=== PATIENT | male | born 1940 | race Caucasian/White ===

== ENCOUNTER → 2017-01-17 | Outpatient (CLI) | payer OTHER, BC ==
[~2017-01-17] VITALS: Ht 180.3 cm; Wt 110.2 kg
[~2017-01-17] MED LIST: ACTOS 30 MG TAB30 M1 PO; AMLODIPINE BESY10 MG PO; APAP500 PO; ASPIR 8181 M1 PO; ASPIRIN81 M2 PO; BACTROBAN22 GM; COLACE100 MG PO; COUMADIN 2 MG TA2 M1 PO; COUMADIN 3 MG TA3 M1 PO; COZAAR 50 MG TA50 M2 PO; DIABETA 5MG TABL5 MG PO; HYDROCODONE-APA1 TA1 PO; LASIX 40 MG TAB40 M2 PO; LIPITOR 20 MG T20 M1 PO; LOPRESSOR100 MG PO; LUNESTA3 MG PO; MAG-AL PLUS SUS30 ML PO; METFORMIN HCL500 MG PO; METOPROLOL SUC100 MG PO; MULTI VITAMIN1 EACH PO; NORCO 5-325 TA1 EACH PO; PIOGLITAZONE30 MG PO; TOPROL XL100 MG PO; TRAMADOL 50 MG50 MG PO; TYLENOL325 MG PO; VITAMIN C500 M1 PO; VITAMIN D1000 UNI1 PO; VOLTAREN GEL 1100 G2; ZOLPIDEM TARTRA10 MG PO; [UNRECOGNIZED DRUG - OTHER] PO
--- NOTE | ~2017-01-17 | HPC ---
[facility] [address] [place] [address] PAIN MANAGEMENT CONSULTATION Name: KOURTNEY HARVEY Room #: [facility].#: [id number] Admission: 01/17/17 Attend Phys: Tee Gonsales DO Discharge: Date of : 42 Report #: [id number] THIS REPORT FOR: //name// CC: Eugene Gonsales DATE OF SERVICE: 01/17/2017 CHIEF COMPLAINT: Low back pain, bilateral lower extremity pain with weakness and paresthesias. HISTORY OF PRESENT ILLNESS: As you know, the patient is a very pleasant 76-year-old male who has had a longstanding history of low back pain, lower extremity pain with weakness and paresthesias. The patient indicates pain began in 2014. He denies injury or trauma. He states pain has progressively worsened. He has recently underwent MRI of the lumbar spine. Given the findings on this imaging study, he was then referred to our clinic for evaluation for lumbar spinal stenosis. He indicates today pain is periodic, describes pain as burning, aching, gnawing, numbness and tingling. Places pain score at 6/10, daily average of 6/10, worst pain has been is 6/10. The patient states that sitting, walking any length of time exacerbates symptoms; sitting and repositioning tends to improve pain periodically. He states he is having difficulty with lifting his legs and has noted weakness, stumbling and near falls that have begun to become more prevalent. He has been referred to our clinic for evaluation. PAST MEDICAL HISTORY: 1. Long-term anticoagulation use. 2. Ataxic gait. 3. Atrial fibrillation. 4. Coronary artery disease. 5. Diabetes mellitus type 2. 6. Chronic lumbar pain secondary to spinal stenosis. 7. Osteoarthritis. 8. Hyperlipidemia. 9. Hypertension. 10. Chronic insomnia. 11. Morbid obesity. 12. Peripheral neuropathy. 13. Restrictive lung disease. 14. Venous insufficiency. PAST SURGICAL HISTORY: Bilateral total knee arthroplasties, cataract surgery, bilateral. [address] [address] PAIN MANAGEMENT CONSULTATION Name: KOURTNEY HARVEY Room #: [facility].#: [id number] Admission: 01/17/17 Attend Phys: Tee Gonsales DO Discharge: Date of : 42 Report #: [id number] SOCIAL HISTORY: The patient denies tobacco, IV or illicit drug use. Admits to approximately 2 alcoholic beverages per week. He is retired, retired 22 years ago. He is accompanied by his who is present in room today. REVIEW OF SYSTEMS: Positive for wearing corrective eyewear, glaucoma, hearing loss with tinnitus, atrial fibrillation requiring anticoagulation, shortness of breath, nocturia, numbness and tingling sensations, balance issues, ataxic gait, diabetes mellitus type 2, hypertension, dyslipidemia. All other review of systems negative per 12-point review of systems other than those listed in history of present illness. Pain impact score 30/70 indicating moderate interference of daily activities secondary to pain. ALLERGIES: PENICILLINS. CURRENT MEDICATIONS: Vitamin C 500 mg once a day, cholecalciferol 1000 units per day, acetaminophen 500 mg 3 times a day, zolpidem 10 mg p.o. at bedtime, Lunesta 3 mg p.o. at bedtime, metoprolol 100 mg once a day, warfarin 3 mg every other day, aspirin 81 mg per day, metformin 1000 mg twice a day, tramadol 50 mg 4 times a day, multivitamin 1 tab per day, furosemide 40 mg per day, Actos 30 mg per day, amlodipine 10 mg per day, Lipitor 20 mg per day, Cozaar 50 mg twice a day, Diabeta 5 mg twice a day. IMAGING: MRI lumbar spine obtained on 11/15/2016 shows L1-L2 unremarkable. L2-L3 disk bulge, facet ligamentum flavum hypertrophy, epidural fat prominence, AP diameter measuring 5 mm, lateral recess narrowing bilaterally. L3-L4, marked facet and ligamentum flavum hypertrophy, severe central canal stenosis with thecal sac measuring 3 mm, negligible CSF surrounding nerve roots. Moderate bilateral neural foraminal narrowing. L4-L5, superimposed disk herniation and disk bulge, marked facet hypertrophy, ligamentum flavum hypertrophy, severe compression of the cord. No CSF surrounding nerve roots at this level, severe lateral recess narrowing, [id number] bilateral neural foraminal narrowing. L5-S1, disk bulge, broad-based central disk protrusions and facet hypertrophy, thecal sac measuring 9 mm. Foraminal narrowing. PHYSICAL EXAMINATION: VITAL SIGNS: Blood pressure 156/102, pulse 70, respiratory rate 22, unlabored. The patient is 98% on room air, height 5 feet 11 inches tall, weight 243 pounds, BMI calculated 33.9. GENERAL: Well-developed, well-nourished, well-hydrated, exogenously obese 76-year-old male appearing his stated age. He is placing current pain score around 6/10. HEENT: Normocephalic, atraumatic. Pupils equal, round, reactive to light. Extraocular muscles are intact. Sclerae nonicteric without injection. NEUROLOGIC: Cranial nerves 2-12 grossly intact. Speech fluent. The patient [address] [address] PAIN MANAGEMENT CONSULTATION Name: KOURTNEY HARVEY Tricia Room #: REG [facility] [place]#: [id number] Admission: 01/17/17 Attend Phys: Tee Gonsales DO Discharge: Date of : 42 Report #: [id number] deemed an excellent historian. LUNGS: Clear. No wheeze, rhonchi or rales. CARDIOVASCULAR: Regular. No appreciable gallop or rub. ABDOMEN: Soft, obese, nontender, nondistended, normal active bowel sounds. EXTREMITIES: Show no clubbing, no cyanosis, no edema. MUSCULOSKELETAL: Lower extremity strength is weakened bilaterally, would rate muscle tone at 4.5/5. Ankle clonus negative. Babinski is negative. Seated straight leg raising positive, supine straight leg raising positive. Alexandr test is negative. Modified Gaenslen's is positive for some axial low back pain. He is intact to light touch from L1 through L4 dermatomes. There is decreased sensation distally to L5 and S1. Gait is antalgic. He does use a cane for ambulation. ASSESSMENT: 1. Symptomatic lumbar radiculopathy. 2. Critical spinal stenosis of lumbar spine. 3. Displacement of lumbar intervertebral disk with radiculopathy. 4. Lumbosacral spondylosis with radiculopathy. 5. Lumbar degeneration. 6. Chronic intractable pain. PLAN: 1. The patient has been referred to our service for evaluation for spinal stenosis. Unfortunately, the patient is at a level of critical spinal stenosis at the L3-L4 level, is noted to have severe spinal stenosis at L4-L5 and L2-L3. We have discussed with the patient the findings on the MRI and how they correlate to his symptoms. Luckily, the patient is not experiencing much in the way of loss of sensation in the lower extremities to date, but has been experiencing increasing problems with balance, which I believe are due to proprioception loss secondary to the stenosis. There is a possibility he has some underlying diabetic peripheral neuropathy, which is contributing to the symptoms, but given the severity of the spinal stenosis at the L3-L4 level as well as the L4-L5 and L2 level, the stenosis may be the major source of the patient's condition. I have discussed this with the patient today and we have discussed treatment options, following was discussed. We discussed physical therapy, stretching exercises, core strengthening and a concerted effort at weight loss as a treatment option. We discussed medication management including neuropathic pain medications. The patient indicates that he has been on Neurontin in the past and failed, but this is likely due to too low at dosing as I have discussed with the patient, he was about 300 mg 3 times a day, which is an extremely low dose. He was not experiencing much in the way of side effects at that time. Apparently, he had determined it was ineffective and they subsequently discontinued its use. This could be reinitiated or we could use other neuropathic pain medications. We discussed epidural injections under fluoroscopic guidance that may provide transient improvement in symptoms [facility] [address] [place] [address] PAIN MANAGEMENT CONSULTATION Name: KOURTNEY HARVEY Room #: REG [facility] [place]#: [id number] Admission: 01/17/17 Attend Phys: Tee Gonsales DO Discharge: Date of : 42 Report #: [id number] would not provide any long-term therapeutic improvement. We discussed spinal cord stimulator which could provide analgesic benefit, but again would not change the stenotic lesions. We also discussed surgical options. After reviewing risks and benefits of all proposed treatment options and understanding the severity of his stenosis, he requested a surgical consultation. 2. We have taken the liberty of contacting [facility] and made the patient an appointment on Monday of this week, 01/20/2017 to undergo evaluation for possible surgical options to address his critical spinal stenosis at one single level, the L3-L4 level and the severe spinal stenosis at L2-L3 and L5-S1. The patient will contact our clinic once he has had the surgery evaluation to discuss potential treatment options from their standpoint. 3. The patient will be started on Gralise 600 mg tablet. This will be provided at night. He will then follow the titration as directed on the Gralise starter pack. Once the patient reaches an efficacious level without side effects such as somnolence, decreased mental acuity, disorientation and confusion, he will stabilize at that dose, contact our clinic so that we can call in a prescription. We have used the Gralise as his report of gabapentin use 300 mg 3 times a day was met with some side effects of somnolence, decrease in mental acuity. We will trial the Gralise medication specifically, so this can be taken at night onetime dose with a 24-hour efficacy. He will contact our clinic with dosing that is working for him. 4. We wish to thank the referring team for the opportunity to see this patient in consultation. We will keep you apprised of his response to treatment as we address his ongoing neuropathic symptoms. Again, we wish to thank you for the opportunity to see him in consultation. By: [id number] Tee Gonsales DO /nt
[2017-01-17 12:08] LABS: INR 1.1; PROTIME 10.9 Seconds (9.3-11.4)
[2017-01-17 12:59] VITALS: BP 156/102
== END | disposition home or self-care (01) ==
LOC: PAIN 06:54
PROVIDERS: Anesthesiology Pain Medicine
DX: M51.16 Intervertebral disc disorders with radiculopathy, lumbar region (principal); M48.06 Spinal stenosis, lumbar region; M47.27 Other spondylosis with radiculopathy, lumbosacral region; G89.29 Other chronic pain; I48.91 Unspecified atrial fibrillation; E11.42 Type 2 diabetes mellitus with diabetic polyneuropathy; I25.10 Atherosclerotic heart disease of native coronary artery without angina pectoris; I10 Essential (primary) hypertension; I87.2 Venous insufficiency (chronic) (peripheral); H40.9 Unspecified glaucoma; M19.90 Unspecified osteoarthritis, unspecified site; E78.5 Hyperlipidemia, unspecified; F51.04 Psychophysiologic insomnia; E66.01 Morbid (severe) obesity due to excess calories; Z98.1 Arthrodesis status; Z98.41 Cataract extraction status, right eye; Z79.01 Long term (current) use of anticoagulants; Z98.42 Cataract extraction status, left eye; Z96.1 Presence of intraocular lens; Z98.890 Other specified postprocedural states; Z88.0 Allergy status to penicillin; Z68.33 Body mass index [BMI] 33.0-33.9, adult; Z79.899 Other long term (current) drug therapy

== ENCOUNTER → 2019-08-22 | Outpatient (CLI) | payer OTHER, BC | LOC: HYPER 15:18 | DX: E11.621 Type 2 diabetes mellitus with foot ulcer (principal); L89.623 Pressure ulcer of left heel, stage 3; L97.421 Non-pressure chronic ulcer of left heel and midfoot limited to breakdown of skin; E11.622 Type 2 diabetes mellitus with other skin ulcer; L97.821 Non-pressure chronic ulcer of other part of left lower leg limited to breakdown of skin; G47.30 Sleep apnea, unspecified; Z79.01 Long term (current) use of anticoagulants; Z79.82 Long term (current) use of aspirin; Z79.84 Long term (current) use of oral hypoglycemic drugs; Z87.891 Personal history of nicotine dependence; Z96.653 Presence of artificial knee joint, bilateral ==

== ENCOUNTER → 2019-08-29 | Outpatient (CLI) | payer OTHER, BC | LOC: HYPER 10:33 | DX: E11.621 Type 2 diabetes mellitus with foot ulcer (principal); L89.623 Pressure ulcer of left heel, stage 3; L97.421 Non-pressure chronic ulcer of left heel and midfoot limited to breakdown of skin; R60.0 Localized edema; I27.20 Pulmonary hypertension, unspecified; H91.90 Unspecified hearing loss, unspecified ear; D68.9 Coagulation defect, unspecified; G47.30 Sleep apnea, unspecified; Z79.01 Long term (current) use of anticoagulants; Z79.82 Long term (current) use of aspirin; Z79.84 Long term (current) use of oral hypoglycemic drugs; Z87.891 Personal history of nicotine dependence ==

== ENCOUNTER → 2019-09-05 | Outpatient (CLI) | payer OTHER, BC | LOC: HYPER 12:42 | DX: E11.621 Type 2 diabetes mellitus with foot ulcer (principal); L89.623 Pressure ulcer of left heel, stage 3; L97.422 Non-pressure chronic ulcer of left heel and midfoot with fat layer exposed; R60.0 Localized edema; G47.30 Sleep apnea, unspecified; I27.20 Pulmonary hypertension, unspecified; Z79.01 Long term (current) use of anticoagulants; Z79.82 Long term (current) use of aspirin; Z79.84 Long term (current) use of oral hypoglycemic drugs; Z87.891 Personal history of nicotine dependence ==

== ENCOUNTER → 2019-09-12 | Outpatient (CLI) | payer OTHER, BC | LOC: HYPER 14:42 | DX: E11.622 Type 2 diabetes mellitus with other skin ulcer (principal); L97.822 Non-pressure chronic ulcer of other part of left lower leg with fat layer exposed; E11.621 Type 2 diabetes mellitus with foot ulcer; L89.623 Pressure ulcer of left heel, stage 3; R60.0 Localized edema; G47.30 Sleep apnea, unspecified; Z87.891 Personal history of nicotine dependence; Z79.01 Long term (current) use of anticoagulants; Z79.82 Long term (current) use of aspirin ==

== ENCOUNTER → 2019-09-19 | Outpatient (CLI) | payer OTHER, BC | LOC: HYPER 14:27 | DX: E11.622 Type 2 diabetes mellitus with other skin ulcer (principal); L97.822 Non-pressure chronic ulcer of other part of left lower leg with fat layer exposed; E11.621 Type 2 diabetes mellitus with foot ulcer; L89.623 Pressure ulcer of left heel, stage 3; L97.421 Non-pressure chronic ulcer of left heel and midfoot limited to breakdown of skin; M85.80 Other specified disorders of bone density and structure, unspecified site; R60.0 Localized edema; Z87.891 Personal history of nicotine dependence; Z79.01 Long term (current) use of anticoagulants; Z79.84 Long term (current) use of oral hypoglycemic drugs; Z79.82 Long term (current) use of aspirin ==

== ENCOUNTER → 2019-09-26 | Outpatient (CLI) | payer OTHER, BC | LOC: HYPER 13:56 | DX: E11.621 Type 2 diabetes mellitus with foot ulcer (principal); L89.623 Pressure ulcer of left heel, stage 3; L97.421 Non-pressure chronic ulcer of left heel and midfoot limited to breakdown of skin; E11.622 Type 2 diabetes mellitus with other skin ulcer; L97.822 Non-pressure chronic ulcer of other part of left lower leg with fat layer exposed; G47.30 Sleep apnea, unspecified; I27.20 Pulmonary hypertension, unspecified; R60.0 Localized edema; Z79.01 Long term (current) use of anticoagulants; Z79.82 Long term (current) use of aspirin; Z79.84 Long term (current) use of oral hypoglycemic drugs; Z87.891 Personal history of nicotine dependence ==

== ENCOUNTER → 2019-10-03 | Outpatient (CLI) | payer OTHER, BC | LOC: HYPER 12:01 | DX: E11.622 Type 2 diabetes mellitus with other skin ulcer (principal); L97.821 Non-pressure chronic ulcer of other part of left lower leg limited to breakdown of skin; S81.002A Unspecified open wound, left knee, initial encounter; L84 Corns and callosities; M85.80 Other specified disorders of bone density and structure, unspecified site; R60.0 Localized edema; G47.30 Sleep apnea, unspecified; Z87.891 Personal history of nicotine dependence; Z79.01 Long term (current) use of anticoagulants; Z79.82 Long term (current) use of aspirin; Z79.84 Long term (current) use of oral hypoglycemic drugs; X58.XXXA Exposure to other specified factors, initial encounter; Y93.89 Activity, other specified; Y92.89 Other specified places as the place of occurrence of the external cause; Y99.8 Other external cause status ==

== ENCOUNTER → 2019-10-10 | Outpatient (CLI) | payer OTHER, BC | LOC: HYPER 14:20 | DX: E11.622 Type 2 diabetes mellitus with other skin ulcer (principal); L97.821 Non-pressure chronic ulcer of other part of left lower leg limited to breakdown of skin; E11.621 Type 2 diabetes mellitus with foot ulcer; L89.623 Pressure ulcer of left heel, stage 3; L97.421 Non-pressure chronic ulcer of left heel and midfoot limited to breakdown of skin; S81.002D Unspecified open wound, left knee, subsequent encounter; L84 Corns and callosities; R60.0 Localized edema; G47.30 Sleep apnea, unspecified; Z87.891 Personal history of nicotine dependence; Z79.01 Long term (current) use of anticoagulants; Z79.82 Long term (current) use of aspirin; Z79.84 Long term (current) use of oral hypoglycemic drugs; X58.XXXD Exposure to other specified factors, subsequent encounter ==

== ENCOUNTER → 2019-10-17 | Outpatient (CLI) | payer OTHER, BC | LOC: HYPER 15:12 | DX: E11.621 Type 2 diabetes mellitus with foot ulcer (principal); L89.623 Pressure ulcer of left heel, stage 3; L97.421 Non-pressure chronic ulcer of left heel and midfoot limited to breakdown of skin; E11.622 Type 2 diabetes mellitus with other skin ulcer; L97.821 Non-pressure chronic ulcer of other part of left lower leg limited to breakdown of skin; S81.002D Unspecified open wound, left knee, subsequent encounter; G47.30 Sleep apnea, unspecified; I27.20 Pulmonary hypertension, unspecified; R60.0 Localized edema; Z79.01 Long term (current) use of anticoagulants; Z79.82 Long term (current) use of aspirin; Z79.84 Long term (current) use of oral hypoglycemic drugs; Z87.891 Personal history of nicotine dependence; X58.XXXD Exposure to other specified factors, subsequent encounter ==

== ENCOUNTER → 2019-10-28 | Outpatient (CLI) | payer OTHER, BC | LOC: HYPER 10:32 | DX: E11.622 Type 2 diabetes mellitus with other skin ulcer (principal); L97.811 Non-pressure chronic ulcer of other part of right lower leg limited to breakdown of skin; L97.821 Non-pressure chronic ulcer of other part of left lower leg limited to breakdown of skin; L84 Corns and callosities; R60.0 Localized edema; I27.20 Pulmonary hypertension, unspecified; G47.30 Sleep apnea, unspecified; Z79.82 Long term (current) use of aspirin; Z79.01 Long term (current) use of anticoagulants; Z79.84 Long term (current) use of oral hypoglycemic drugs; Z87.891 Personal history of nicotine dependence ==

== ENCOUNTER → 2019-11-13 | Outpatient (CLI) | payer OTHER, BC | LOC: HYPER 13:54 | DX: E11.622 Type 2 diabetes mellitus with other skin ulcer (principal); L97.821 Non-pressure chronic ulcer of other part of left lower leg limited to breakdown of skin; L97.811 Non-pressure chronic ulcer of other part of right lower leg limited to breakdown of skin; L84 Corns and callosities; R60.0 Localized edema; I27.20 Pulmonary hypertension, unspecified; G47.30 Sleep apnea, unspecified; Z79.82 Long term (current) use of aspirin; Z79.01 Long term (current) use of anticoagulants; Z79.84 Long term (current) use of oral hypoglycemic drugs; Z87.891 Personal history of nicotine dependence ==

== ENCOUNTER → 2019-11-27 | Outpatient (CLI) | payer OTHER, BC | LOC: HYPER 14:59 | DX: E11.622 Type 2 diabetes mellitus with other skin ulcer (principal); L97.821 Non-pressure chronic ulcer of other part of left lower leg limited to breakdown of skin; L97.811 Non-pressure chronic ulcer of other part of right lower leg limited to breakdown of skin; L84 Corns and callosities; R60.0 Localized edema; G47.30 Sleep apnea, unspecified; I27.20 Pulmonary hypertension, unspecified; Z79.82 Long term (current) use of aspirin; Z79.01 Long term (current) use of anticoagulants; Z79.84 Long term (current) use of oral hypoglycemic drugs; Z87.891 Personal history of nicotine dependence ==

== ENCOUNTER → 2019-12-19 | Outpatient (CLI) | payer OTHER, BC | LOC: HYPER 09:42 | DX: E11.622 Type 2 diabetes mellitus with other skin ulcer (principal); L97.821 Non-pressure chronic ulcer of other part of left lower leg limited to breakdown of skin; L97.811 Non-pressure chronic ulcer of other part of right lower leg limited to breakdown of skin; E11.621 Type 2 diabetes mellitus with foot ulcer; L89.626 Pressure-induced deep tissue damage of left heel; L97.421 Non-pressure chronic ulcer of left heel and midfoot limited to breakdown of skin; L84 Corns and callosities; R60.0 Localized edema; I27.20 Pulmonary hypertension, unspecified; G47.30 Sleep apnea, unspecified; Z79.82 Long term (current) use of aspirin; Z79.01 Long term (current) use of anticoagulants; Z79.84 Long term (current) use of oral hypoglycemic drugs; Z87.891 Personal history of nicotine dependence ==

== ENCOUNTER 2020-01-22 16:28 | Inpatient (IN) | payer OTHER, BC ==
[~2020-01-22] VITALS: Ht 180.3 cm; Wt 98.6 kg
--- NOTE | ~2020-01-22 | O ---
[facility] [address] [address] [place] [address] OPERATIVE REPORT Name: KOURTNEY HARVEY Tricia Room #: 452-P [facility] IN M.R.#: [id number] Admission: 01/22/20 Attend Phys: Hal Guerrero MD Discharge: Date of : 42 Report #: [id number] THIS REPORT FOR: cc: MICK - No family physician/PCP FAM - No family physician/PCP Michael Beard DPM ~ CC: [facility] physician/PCP Hal Guerrero DATE OF SERVICE: 01/27/2020 PREOPERATIVE DIAGNOSES: 1. Left diabetic foot ulcer, Moses grade 3. 2. Left posterior heel wound, Moses grade 3 as well. POSTOPERATIVE DIAGNOSES: 1. Left diabetic foot ulcer, Moses grade 3. 2. Left posterior heel wound, Moses grade 3 as well. PROCEDURE: 1. Debridement of dorsal foot wound 7.5 cm x 6.3 cm x 0.5 cm. 2. Debridement of posterior heel, ____ 2 cm in diameter. 3. Application of PriMatrix. ANESTHESIA: IV with local 15 mL of 0.5% ropivacaine. TOURNIQUET: None. DESCRIPTION OF PROCEDURE: The patient was transferred to operating room and placed on the operative table in supine position. General anesthesia was administered and the left lower extremity was prepped and draped in the usual sterile manner. PROCEDURE #1: Debridement of left dorsal foot. This was done with a rongeur and a pair of scissors and a pickup. We had to remove further compromised tissue of the extensor digitorum longus tendons, taking off approximately 50% of the tendons in some areas and maybe a little more. I debrided the wound edges significantly as well with a rongeur with subcutaneous and deep fascial debridement. I had good bleeding tissue and there was some undermining that I have debrided. In the end, the wound looked excellent. I washed out thoroughly with normal saline, bacitracin mix and then I applied PriMatrix and secured it with Steri-Strips with an Adaptic over it and then an Optifoam over that. Last procedure was debridement of the heel. It was debrided with a rongeur with [facility] [address] [place] [address] OPERATIVE REPORT Name: KOURTNEY HARVEY Room #: 452-P ADM IN M.R.#: [id number] Admission: 01/22/20 Attend Phys: Hal Guerrero MD Discharge: Date of : 42 Report #: [id number] subcutaneous debridement, excisional with good bleeding. I used rest of the PriMatrix over that and secured it with karen as well and dressing similar to the dorsal left foot. The patient tolerated the procedure well and left the Operating Room in stable condition with neurovascular status vital status intact. Plan is to add a wound VAC to the dorsal foot ____ with the healing wound care group and they have my number and they can contact me anytime. The family also can contact me anytime. I do expect this wound to take quite some time to heal and he is still at risk for BKA or transmetatarsal amputation. By: [id number] [id number] Michael Beard, ROGER /nt
[~2020-01-22 16:28] MED LIST changes: -ACETYLCYST200 MG/1 M INH; -CARDIZEM SR 60M60 MG PO; -ELIQUIS2.5 MG PO; -GABAPENTIN 100100 MG PO; -GLYBURIDE 5 MG T5 M1 PO; -HUMALOG100 UNIT/1 SUBQ; -IPRAT-ALBUT 0.5-3 ML INH; -LANTUS SUBQ; -LASIX 40 MG TAB40 MG PO; -METAMUCIL PLUS1 EACH PO; -NEURONTIN100 MG PO; -NF; -ONGLYZA5 MG PO; -PANTOPRAZOLE SO40 M1 PO; -PREDNISONE 5 MG5 M1 PO; -SODIUM BICARBO650 M3 PO; -SPIRONOLACTONE25 MG PO
[2020-01-22 16:36] VITALS: BP 132/81
[2020-01-22 18:38] LABS: HEMOGLOBIN 11.7 gm/dL (14.0-18.0); MCH 31.1 pg (26.0-34.0); MCHC 32.7 g/dL (28.0-37.0); MCV 95.2 fL (80.0-100.0); PLATELET COUNT 360 thou/uL (150-400); RBC 3.78 mil/uL (4.50-6.00); RDW 15.9 % (10.5-14.5); WBC 14.7 thou/uL (4.0-11.0)
[2020-01-22 18:46] LABS: CALCIUM 8.6 mg/dL (8.5-10.1); CREATININE 1.9 mg/dL (0.7-1.3); POTASSIUM 4.6 mmol/L (3.5-5.1)
[2020-01-22 18:49] LABS: APTT 27.9 Seconds (24.5-32.8); INR 1.1; PROTIME 10.8 Seconds (9.3-11.4)
[2020-01-22 18:52] LABS: ALBUMIN 2.8 g/dL (3.4-5.0); TOTAL BILIRUBIN 0.4 mg/dL (0.2-1.0); TOTAL PROTEIN 5.4 g/dL (6.4-8.2)
[2020-01-22 19:11] LABS: ABSOLUTE NEUTROPHILS 14.1 thou/uL (1.4-8.2); ANISOCYTOSIS 1+
[2020-01-22 19:12] LABS: POLYCHROMASIA OCCASIONAL; SCHISTOCYTES OCCASIONAL
[2020-01-22 20:35] VITALS: BP 143/73
[2020-01-22] MEDS ORDERED: GLYBURIDE 5 MG T5 M1 PO (20:40)
[2020-01-22] MEDS ORDERED: SPIRONOLACTONE25 MG PO (20:41)
[2020-01-22] MEDS ORDERED: NF ×3 (20:42→21:25)
[2020-01-22] MEDS ORDERED: ONGLYZA5 MG PO (20:43)
[2020-01-22] MEDS ORDERED: PREDNISONE 5 MG5 M1 PO (20:46)
[2020-01-22 20:47] LABS: CHOLESTEROL 151 mg/dL (<200); HDL CHOLESTEROL 94 mg/dL (>40); LDL CHOLESTEROL 38 mg/dL (<100); TC:HDL 1.6 Ratio (Not establshd); TRIGLYCERIDE 95 mg/dL (<150); VLDL 19 mg/dL (<40)
[2020-01-22] MEDS ORDERED: CARDIZEM SR 60M60 MG PO (21:23)
[2020-01-22] MEDS ORDERED: ELIQUIS2.5 MG PO (21:23)
[2020-01-22] MEDS ORDERED: VITAMIN C500 M1 PO (21:25)
[2020-01-22 21:26] VITALS: BP 143/75
[2020-01-22] MEDS ORDERED: METAMUCIL PLUS1 EACH PO (21:26)
[2020-01-22] MEDS ORDERED: NEURONTIN100 MG PO (21:27)
[2020-01-22] MEDS ORDERED: LANTUS SUBQ (21:27)
[2020-01-22 22:00] VITALS: BP 183/93
[2020-01-23] VITALS (7 sets, daily range): BP systolic 110–147; BP diastolic 60–90
--- NOTE | 2020-01-23 03:01 | NUR ---
PATIENT AOX4 MAKES NEEDS KNOWN. PATIENT ADMITTED FOR BLE WOUNDS AND POSSIBLE AMPUTATION.PATIENT HAS 2 WOUNDS ON HIS HEAD D/T A FALL AT HOME. PATIENT HAS SEVERAL WOUNDS ON BLE, LEFT FOOT WORSE THAN RIGHT FOOT. CELLITIS ON BLE. PAIN CONTROLED THIS SHIFT.PICTURES TAKEN AND PUT IN THE CHART. PATIENT HAS BEEN NPO SINCE MIDNIGHT. PATIENT USES A WALKER/WHEELCHAIR. PATIENT NEEDS MINIMUM ASSISTANCE WITH ADL, BED MOBILITY, TRANSFER AND TOILETING. PATIENT USES URINAL IN BED. PATIENT IS A FALL RISK HAD A FALL 3 DAYS AGO AT HOME. FALL PRECAUTION IN PLACE. CALL LIGHT AND PERSONAL ITEM WITHIN REACH. PATIENT IN BED ASLEEP AT THIS TIME BREATHING REGULAR AND UNLABOURED.
[2020-01-23 05:52] LABS: HEMATOCRIT 34.5 % (42.0-52.0); HEMOGLOBIN 11.3 gm/dL (14.0-18.0); MCH 30.8 pg (26.0-34.0); MCHC 32.6 g/dL (28.0-37.0); MCV 94.6 fL (80.0-100.0); RBC 3.65 mil/uL (4.50-6.00); RDW 15.6 % (10.5-14.5); WBC 9.9 thou/uL (4.0-11.0)
[2020-01-23 05:54] LABS: CALCIUM 8.2 mg/dL (8.5-10.1); CREATININE 1.8 mg/dL (0.7-1.3); MAGNESIUM 1.7 mg/dL (1.8-2.4)
[2020-01-23 05:55] LABS: PROTIME 10.7 Seconds (9.3-11.4)
--- NOTE | 2020-01-23 07:41 | EKG ---
[facility] [place] [address] [place] [address] ELECTROCARDIOGRAM REPORT Name: KOURTNEY HARVEY Room #: 452- ADM IN M.R.#: [id number] Admission: 01/22/20 Attend Phys: Hal Guerrero MD Discharge: Date of : 42 Report #: [id number] THIS REPORT FOR: cc: MICK - [place] family physician/PCP MICK - No family physician/PCP Amaury Shelby MD [facility] THIS REPORT FOR: //name// [facility] ED Test Date: 2020-01-22 Test Time: 19:50:42 Pat Name: KOURTNEY HARVEY Department: Room: [facility] Gender: M [employer] Operator: [facility] : 1940 Requested By: Adilia García Order Number: [id number] MD: Amaury Shelby Measurements Intervals Golden Rate: 87 P: UT: QRS: 36 QRSD: 105 T: 65 QT: 346 QTc: 417 Interpretive Statements Atrial fibrillation Borderline low voltage, extremity leads Compared to ECG 05/28/2014 02:11:39 No significant changes Electronically Signed On 01-23-2020 7:41:19 CDT by Amaury Shelby [email or web address] <ELECTRONICALLY SIGNED> By: Amaury Shelby MD, FACC 01/23/20 0741 1950 1950 Amaury Shelby MD, [facility] /EPI
--- NOTE | 2020-01-23 12:12 | NUR ---
PATIENT TO HAVE AN I&D AND POSSIBLE AMPUTATION. WILL AWAIT PROBABLE POST OP ORDERS.
--- NOTE | 2020-01-23 14:31 | NUR ---
PT ADMITTED RELATED TO DIABETIC FOOT, OSTEOMYELITIS. CM REVIEWED CHART AND SPOKE WITH CARE TEAM. CM MET WITH PT AT BEDSIDE THIS DAY. PT WAS A&O X4. CM ROLE INTRODUCED. PT INDICATED HE WAS ADMITTED FROM OP WC HERE AT [facility]. PT INDIATED HE LIVES IN A HOUSE WITH HIS WITH STAIR GLIDE IN THROUGH GARAGE AND 3 STEPS WITH BL HANDRAILS IN FRONT. PT INDICATED HE HAS A 4WW, A WC, AND A WC VAN FOR ASSISTANCE WITH MOBILITY AT HOME. PT INDICATED HE HAD BEEN ON SERVICE WITH [facility] AND THAT HE WOULD LIKE TO RESUME WITH THEM UPON DC. PT INDICATED HE HAD BEEN INDEPENDENT WITH [facility].PT INDICATED HE PLANS TO RETURN HOME ONCE MEDICALLY STABLE. CM TO FOLLOW INDICATED WITH DC PLANNING.
--- NOTE | 2020-01-23 14:45 | NUR ---
Nutrition: pt admitted with BLE wounds, sepsis. Plan I&D of left necrotic foot wound with possible amputation need. Pt has been NPO for planned surgery today but nsg reports it will be tomorrow now. Pt states his appetite is huge-currently frustrated at NPO. Familiar with Na+ restriction and diabetic diets. present and confirms. A1C pending. Did report intentional 25# weight loss in past year due to improved eating habits. Pt not interested in Hossein supplements. Protein needs reviewed. Follow for timely diet advance. Low nutrition risk.
--- NOTE | 2020-01-23 18:32 | NUR ---
PT IS AOX4, VSS, PAIN CONTROLLED WITH ORAL ANALGESIC. PT COVID 19 TEST WAS COMPLETED AND SENT TO LAB. SURGERY OF DIABETIC FOOT WILL BE RESCHEDULED. PT IS UP TO BSC WITH 1 PERSON ASSIST. APPETITE IS GOOD. CALL LIGHT IN REACH, WILL CONTINUE TO MONITOR.
[2020-01-24] VITALS (9 sets, daily range): BP systolic 134–154; BP diastolic 60–92
--- NOTE | 2020-01-24 01:25 | NUR ---
PATIENT AOX4 MAKES NEEDS KNOWN. PATIENT WAS TACHYCARDIAC ON THE MONITOR DILTIAZEM GIVEN BECAUSE PATIENT MISSED AM DOSE D/T PATIENT BEING NPO.APPLICATION ARCHITECT NOTIFIED. PATIENT WAS IN INCREASED PAIN DURING DRESSING CHANGE ON LEFT FOOT WITH INCREASED HEART RATE. PATIENT REFUSED MORPHINE FOR PAIN AND REQUESTED TRAMADOL,CALLED APPLICATION ARCHITECT TO GIVE TRAMADOL BEFORE 6 HOURS. NEW ORDER OF METOPROLOL IV AND TRAMADOL. FALL PRECAUTION IN PLACE. PATIENT IN BED ASLEEP AT THIS TIME BREATHING REGULAR AND UNLABOURED.
--- NOTE | 2020-01-24 10:50 | NUR ---
Received awake on bed. Due medications given as prescribed. On nothing per orem, pt informed and aware; mouth swabs given. A+Ox4. On telemetry- strips attached to chart; SR-ST; no complaints of chest pain, crushing and heaviness sensation. On O2 at 2lpm via nasal cannula- pt's baseline at home. Able to have a bowel movement today- charted. For surgery today- irrigation and drainage of L foot wound- a/w callback from OR re: exact time for procedure. Continent of bowel and bladder- using urinal and able to use bedside commode. With NS at 125cc/hr, infusing well at L AC. With wounds at Lower extremities- dressing in place; with edema- kept elevated. Falls bundle in place. Pt brought down via bed, report given to GEENA Panda- consent re-printed and to be signed. To continue monitoring patient.
--- NOTE | 2020-01-24 14:15 | NUR ---
PT HAD I&D DONE THIS DAY. DR. ASHLEY INDICATED PT MAY BE HERE ANOTHER 3-6 DAYS DEPENDING IF REPEAT SURGICAL INTERVENTION IS INDICATED. PT AND FAMILY AWARE. CM TO FOLLOW INDICATED WITH DC PLANNING.
[2020-01-25 04:38] VITALS: BP 140/80
--- NOTE | 2020-01-25 05:05 | NUR ---
Pt. rested quietly at intervals during the night when checked on during frequent rounds. He did c/o left leg pain and pain meds given (see emar) with some relief noted. Dressing to left foot dry and intact. Bed alarm is on.
[2020-01-25 05:43] LABS: HEMATOCRIT 33.2 % (42.0-52.0); MCH 31.2 pg (26.0-34.0); MCHC 33.1 g/dL (28.0-37.0); MCV 94.4 fL (80.0-100.0); RBC 3.52 mil/uL (4.50-6.00); RDW 15.6 % (10.5-14.5); WBC 10.6 thou/uL (4.0-11.0)
[2020-01-25 06:04] LABS: CALCIUM 7.9 mg/dL (8.5-10.1); CREATININE 1.5 mg/dL (0.7-1.3); MAGNESIUM 1.9 mg/dL (1.8-2.4); POTASSIUM 4.6 mmol/L (3.5-5.1)
--- NOTE | 2020-01-25 06:40 | NUR ---
Pt. having audible wheezes and lung sounds coarse upon auscultation. O2 saturation is 95% with o2 on at 2 liters per a nasal canula. Cecilia KOLB called and informed. RT called and they will give prn breathing treatment.
[2020-01-25 07:30] VITALS: BP 146/100
[2020-01-25 15:20] VITALS: BP 125/78
--- NOTE | 2020-01-25 20:18 | NUR ---
assumed pt care this am , lung sounds were very coarse and wheezing presnrt on all lung salinas. +3 Edema noted on all extremities, pt had mentioned that he has been taking lasix for along time for chf and this has not been ,given to him from the time he was admitted. Informed Dr. Elliott of the status of the pt and for medications from home to be reviewed. FC placed, lasix given as per order, lung sounds better in the pm. Blood sugar checks and medication given as per emar. POC followed, endorsed to the night nurse.
[2020-01-25 20:19] VITALS: BP 136/78
[2020-01-26 05:50] LABS: ABSOLUTE NEUTROPHILS 10.4 thou/uL (1.4-8.2); BASOPHILS 0.7 % (0.0-2.0); EOSINOPHILS 0.7 % (0.0-3.0); HEMATOCRIT 40.4 % (42.0-52.0); LYMPHOCYTES 6.4 % (24.0-44.0); MCHC 32.4 g/dL (28.0-37.0); MCV 95.7 fL (80.0-100.0); PLATELET COUNT 293 thou/uL (150-400); POLYS 81.2 % (36.0-66.0); RBC 4.23 mil/uL (4.50-6.00); RDW 15.9 % (10.5-14.5); WBC 12.9 thou/uL (4.0-11.0)
[2020-01-26 06:09] LABS: HEMOGLOBIN 13.1 gm/dL (14.0-18.0)
[2020-01-26 06:16] LABS: ALBUMIN 2.3 g/dL (3.4-5.0); CALCIUM 8.3 mg/dL (8.5-10.1); CREATININE 1.6 mg/dL (0.7-1.3); PHOSPHORUS 3.8 mg/dL (2.5-4.9); POTASSIUM 4.9 mmol/L (3.5-5.1); TOTAL BILIRUBIN 0.5 mg/dL (0.2-1.0); TOTAL PROTEIN 5.4 g/dL (6.4-8.2)
[2020-01-26 07:20] VITALS: BP 135/95
--- NOTE | 2020-01-26 07:26 | NUR ---
ASSUMED PT CARE AROUND 1929. AXOX4. CALLS PROPERLY FOR HELP. AROUND 399, C/O SOB. CALLED [facility] COORDINATOR AND RECIEVED ORDERS. NO S/S ACUTE DISTRESS NOTED O REPORTED AT THIS TIME. CARE TRANSFERRED TO INCOMING RN AT THIS TIME.
--- NOTE | 2020-01-26 12:05 | O ---
[facility] [place] [address] [address] [place] [address] OPERATIVE REPORT Name: CANDICEKOURTNEY B Room #: 452-P ADM IN M.R.#: [id number] Admission: 01/22/20 Attend Phys: Hal Guerrero MD Discharge: Date of : 42 Report #: [id number] THIS REPORT FOR: cc: MICK - No family physician/PCP FAM - No family physician/PCP Michael Beard DPM ~ CC: [facility] physician/PCP Hal Guerrero DATE OF SERVICE: 01/24/2020 PREOPERATIVE DIAGNOSES: 1. Left foot wound. 2. Left posterior heel wound. 3. Venous leg ulcer. POSTOPERATIVE DIAGNOSES: 1. Left foot wound. 2. Left posterior heel wound. 3. Venous leg ulcer. PROCEDURES: 1. Left dorsal foot wound debrided approximately 9 cm in length, 6 cm in width. It was subcutaneous debridement and tendon debridement with a pair of scissors and a rongeur. 2. Left heel wound 3 cm in diameter, subcutaneous with a rongeur. 3. Debridement of venous leg ulcer with a rongeur 2 cm in diameter subcutaneous only. ANESTHESIA: General with a local block consisting of 15 mL of 0.5% Marcaine. TOURNIQUET: None. DESCRIPTION OF PROCEDURE: The patient was transported to the operating room and placed on the operating room table. The left lower extremity was prepped and draped in the usual sterile manner. Attention was directed to the left foot where it was debrided with a 15 blade scissors and rongeur. It took quite a bit of time making sure that all the edges debrided and all the tendons were debrided off as well as a part of the tendon itself. The outer tendon was removed because it looked questionable and some places actually infected and had good bleeding tissue surrounding the tendon and the tendon itself and the margins looked excellent. I made an incision more proximal because of it. There was some evidence of infection going more proximal on the foot. I made extension approximately 3 cm to clean it out nicely with good bleeding tissue and no other tracking was noted. [facility] [address] [place] [address] OPERATIVE REPORT Name: KOURTNEY HARVEY Room #: 452-P [facility] IN M.R.#: [id number] Admission: 01/22/20 Attend Phys: Hal Guerrero MD Discharge: Date of : 42 Report #: [id number] Deep tissue was sent for aerobic, anaerobic, and fungal and it was washed out with normal saline, bacitracin mix and then dressed with Xeroform, Aquacel Ag type dressing. Then, a second procedure with heel debridement was done with subcutaneous with a rongeur, good bleeding and it was dressed as the dorsal foot and then moved to leg and debrided those all with a rongeur. All dressings again were covered with Kerlix and outer Carlos bandage. The patient tolerated the procedure well and left the operating suite in stable condition with neurovascular status intact. The patient will have a second debridement sometime in the next 2-4 days, probably putting some type of skin substitute, Apligraf, PriMatrix or Integra. We will evaluate him in the next couple of days to see if that surgery is necessary. The patient tolerated the procedure well and left the operating suite in stable condition with neurovascular status intact. <ELECTRONICALLY SIGNED> By: Michael Beard DPM 01/26/20 1205 0905 0928 Michael Beard DPM /nt
[2020-01-26 15:15] VITALS: BP 142/93
--- NOTE | 2020-01-26 16:13 | NUR ---
Assumed pt care at 7am.Assessment completed.vss.Pt has o2 on at all times at 3lnc.Pt has adequate u/o per ayon catheter.Dr Elliott here,order noted.Pt tolerated meds and diet.Later this afternoon,Dr Rae and Jessica here.Dc order noted.Pt has labored breathing but still able to do minimal activity.Dr Barreto here informed pt about going for surgery in am.Consent signed. at bs visiting.Will continue to monitor.
[2020-01-26 20:12] VITALS: BP 148/84
--- NOTE | 2020-01-27 00:21 | NUR ---
ASSUMED PT CARE AROUND 1930. AXOX4. VSS. PT VERBALIZED UNDERSTANDING OF BEING NPO AFTER MN FOR SURGERY IN AM. NO S/S ACUTE DISTRESS NOTED OR REPORTED AT THIS TIME. CARE TRANSFERRED TO GEENA BOWIE AT THIS TIME.
[2020-01-27 06:17] LABS: ABSOLUTE NEUTROPHILS 8.6 thou/uL (1.4-8.2); BASOPHILS 1.2 % (0.0-2.0); HEMATOCRIT 32.8 % (42.0-52.0); LYMPHOCYTES 4.8 % (24.0-44.0); MCH 31.2 pg (26.0-34.0); MCHC 33.5 g/dL (28.0-37.0); MCV 93.1 fL (80.0-100.0); MONOCYTES 11.5 % (1.0-8.0); PLATELET COUNT 294 thou/uL (150-400); POLYS 81.5 % (36.0-66.0); RBC 3.52 mil/uL (4.50-6.00); RDW 15.5 % (10.5-14.5); WBC 10.6 thou/uL (4.0-11.0)
[2020-01-27 06:31] LABS: CALCIUM 8.1 mg/dL (8.5-10.1); CREATININE 1.6 mg/dL (0.7-1.3); MAGNESIUM 1.9 mg/dL (1.8-2.4); PHOSPHORUS 3.5 mg/dL (2.5-4.9); POTASSIUM 4.3 mmol/L (3.5-5.1)
[2020-01-27 07:04] VITALS: BP 157/90
--- NOTE | 2020-01-27 08:10 | HC ---
[facility] [place] [address] CONSULTATION Name: KOURTNEY HARVEY Tricia Room #: 452-P ADM IN M.R.#: [id number] Admission: 01/22/20 Attend Phys: Hal Guerrero MD Discharge: Date of : 42 Report #: [id number] THIS REPORT FOR: cc: FAM - No family physician/PCP IMCK - No family physician/PCP Arjun Rahman MD ~ CC: [facility] physician/PCP Hal Guerrero DATE OF SERVICE: 01/23/2020 CHIEF COMPLAINT: Multiple ulcerations to the lower extremities. HISTORY OF PRESENT ILLNESS: This is a 79-year-old male patient with whom we are familiar from the outpatient [facility]. He was seen by my partner, Dr. Ray Caro for ulcerations of the lower extremities as well as hematoma of the dorsal aspect of the left foot. Due to infection, pain and nonhealing, he was admitted to the hospital and Podiatry has been consulted for debridement. The patient has some discomfort in his legs as well as swelling. PAST MEDICAL HISTORY: Significant for type 2 diabetes mellitus, chronic ulcerations of both feet, hypertension, hyperlipidemia, chronic respiratory failure with restrictive lung disease, obstructive sleep apnea, congestive heart failure, and atrial fibrillation requiring long-term anticoagulation. MEDICATIONS: Include tramadol, Lasix, glyburide, spironolactone, Onglyza, prednisone, Eliquis, Cardizem, vitamin C, Metamucil, Neurontin, Lantus, Lipitor, Glucophage, Tylenol, and vitamin D. ALLERGIES: PENICILLIN. SOCIAL HISTORY: The patient admits to occasional alcohol use. He is a former smoker, having quit greater than a year ago. FAMILY HISTORY: Noncontributory. REVIEW OF SYSTEMS: CONSTITUTIONAL: The patient denies fever, chills, or weight loss. NEUROLOGICAL: The patient denies focal weakness, numbness or tingling. EYES: The patient denies visual changes, redness, or drainage. ENT: The patient denies earache, nasal drainage or sore throat. CARDIOVASCULAR: The patient denies chest pain, palpitations or diaphoresis. PULMONARY: The patient denies cough or shortness of breath. GASTROINTESTINAL: The patient denies nausea, vomiting, diarrhea or abdominal pain. ORTHOPEDIC: The patient has ulcerations to both lower extremities, more so on [address] [address] CONSULTATION Name: KOURTNEY HARVEY Room #: 452-P [facility] IN .R.#: [id number] Admission: 01/22/20 Attend Phys: Hal Guerrero MD Discharge: Date of : 42 Report #: [id number] the left than on the right. The patient has a venous type ulceration to the left pretibial region with moderate fibrin, a little bit of granulation tissue seen. There are multiple ulcerations along the pretibial region. EXTREMITIES: He has an unstageable pressure ulceration to the left posterior heel, once again a mix of granulation and fibrin. There is moderate edema. He has a large traumatic wound and likely hematoma to the dorsal aspect of the left foot that measures 6.5 x 6.4 cm. He has superficial ulceration on the dorsal aspect of the right foot at the junction of the toes and metatarsals. This is likely consistent with venous congestion and subsequent breakdown. He has traumatic wounds to the scalp due to a recent fall. They are healthy, clean and granulating and a smaller ulceration to the right lateral lower leg. CLINICAL IMPRESSION: 1. Chronic mixed vascular ulcerations, lower extremities, likely venous insufficiency and lymphedema as exacerbating components. 2. Traumatic wounds to the scalp. 3. Traumatic wound to the dorsal aspect of the left foot with likely underlying hematoma. 4. Type 2 diabetes mellitus. 5. Sepsis. 6. Hypertension. 7. Congestive heart failure. 8. Atrial fibrillation with long-term anticoagulation. RECOMMENDATIONS: At this point in time, the patient will be admitted to the hospital. We will consult Podiatry for surgical debridement. Additional wound care decision making to be undertaken following surgical debridement. We will recommend intravenous antibiotic therapy. Infectious Disease has been consulted. We will check arterial Dopplers, maximize nutrition to maintain glycemic control ____ with wound healing. I appreciate being asked to see him in consultation. <ELECTRONICALLY SIGNED> By: Arjun Rahman MD 01/27/20 0810 [id number] Arjun Rahman MD /nt
--- NOTE | 2020-01-27 10:12 | NUR ---
PT WAS IN BED SELLPING WHEN I ARRIVED FOR DUTY. PT WAS ENCOURAGED TO REMAIN NPO FOR PROCEEDURE THIS AFTERNOON, THE ONLY MEDICATION GIVEN WAS 4U INULIN AND DILTIAZEM ORDERED. ALL OTHER MEDICATIONS WERE WITH HELD ORDERED. ECHO WAS DONE LAB'S AND CHEST XRAY DONE ORDERED. O2 WAS ON IN ROOM WITH NASAL CANULAR. LEG AND HEAL PROTECTORS IN PLACE. MORAN DRAINING WELL. PT RELAXING IN BED.
--- NOTE | 2020-01-27 10:22 | 2DMMODE ---
[address] [address] 2 D/M-MODE ECHOCARDIOGRAM Name: KOURTNEY HARVEY Room #: 452-P ADM IN M.R.#: [id number] Admission: 01/22/20 Attend Phys: Hal Guerrero MD Discharge: Date of : 42 Report #: [id number] THIS REPORT FOR: cc: FAM - No family physician/PCP FAM - No family physician/PCP Chandra Soto MD ~ APPROVED REPORT Study performed: 01/27/2020 09:27:50 EXAM: Comprehensive 2D, Doppler, and color-flow Echocardiogram Patient Location: Bedside Room #: [facility] Status: routine BSA: 2.18 HR: 92 bpm BP: 157/90 mmHg Rhythm: Atrial Fibrillation Other Information Study Quality: Adequate Indications Congestive Heart Failure Diabetes Atrial Fibrillation Sepsis Hypertension/HDD 2D Dimensions IVC: 23.00 mm Volumes Left Atrial Volume (Systole) LA ESV Index: 53.00 mL/m2 Tricuspid Valve PA Pressure: 76.00 mmHg Left Ventricle The left ventricle is normal size. There is normal left ventricular wall thickness. The left ventricular systolic function is normal. The left ventricular ejection fraction is within the normal range. LVEF is 55-60%. This study is not technically sufficient to allow [address] [address] 2 D/M-MODE ECHOCARDIOGRAM Name: KOURTNEY HARVEY Room #: 452-P ADM IN ..#: [id number] Admission: 01/22/20 Attend Phys: Hal Guerrero MD Discharge: Date of : 42 Report #: [id number] evaluation of the LV diastolic function due to atrial fibrillation. Right Ventricle Right ventricle is dilated. Atria Left atrium is dilated. Right atrium is dilated. Aortic Valve The aortic valve is normal in structure. The Aortic valve is sclerotic. Mild aortic regurgitation. There is no aortic valvular stenosis. Mitral Valve The mitral valve is normal in structure. Mild to moderate mitral regurgitation. No evidence of mitral valve stenosis. Tricuspid Valve The tricuspid valve is normal in structure. There is moderate to severe tricuspid regurgitation. Estimated PAP 76 mmHg. There is severe pulmonary hypertension. Pulmonic Valve The pulmonary valve is normal in structure. Mild pulmonic regurgitation. Great Vessels The aortic root is normal in size. IVC is dilated and collapses <50% with inspiration. Pericardium There is no pericardial effusion. <Conclusion> The left ventricle is normal size. The left ventricular systolic function is normal. Right ventricle is dilated. Left atrium is dilated. Right atrium is dilated. Mild aortic regurgitation. Mild to moderate mitral regurgitation. There is moderate to severe tricuspid regurgitation. Estimated PAP 76 [facility] [address] [place] [address] 2 D/M-MODE ECHOCARDIOGRAM Name: KOURTNEY HARVEY Room #: 452-P ADM IN .R.#: [id number] Admission: 01/22/20 Attend Phys: Hal Guerrero MD Discharge: Date of : 42 Report #: [id number]. There is severe pulmonary hypertension. <ELECTRONICALLY SIGNED> By: Chandra Soto MD 01/27/20 1021 102 102 Chandra Soto MD /INF
--- NOTE | 2020-01-27 14:29 | NUR ---
PT IS TO RETURN TO THE OR THIS DAY FOR REPEAT I&D WITH SKIN GRAFTING TO BE DONE. AWAITING RECS FROM ID. CM TO FOLLOW UP WITH PT AND SPOUSE REGARDING PREFERENCE FOR HOME WITH HH OR SKILLED POST ACUTE CARE STAY. PT HAD BEEN ON SERVICE WITH [facility] AND HAD BEEN TO [facility] IN THE PAST. CM TO FOLLOW INDICATED WITH DC PLANNING.
[2020-01-27 19:42] VITALS: BP 135/94
[2020-01-28 01:06] LABS: GLYCOHEMOGLOBIN (HGB A1C) 9.3 % (4.8-5.6)
--- NOTE | 2020-01-28 07:01 | NUR ---
Pt. rested quietly at intervals during the night when checked on during frequent rounds. He did have a few periods of confusion and kept thinking someone was useing his bathroom in his room and there were little girls outside of his room. Pt. c/o left foot pain and pain meds given (see emar) with some relief noted. Dressing to his left foot is dry and intact. Bed alarm is on.
[2020-01-28 07:17] VITALS: BP 143/103
--- NOTE | 2020-01-28 14:43 | NUR ---
CM HAD MET WITH PT THIS AM AND DISCUSSED POSSIBLE POST ACUTE CARE STAY AND PT INDICATED PREFERENCE TO RETURN HOME WITH [facility]. PT INDICATED HE WOULD BE CAPABLE OF DOING HOME INFUSION IF NEEDED UPON DC. CM VISITED WITH PT AND SPOUSE THIS AFTERNOON AND PT WAS RECEPTIVE TO SKILLED POST ACUTE CARE STAY. THEY ASKED THAT REFERRAL BE SENT TO [facility] BUT THAT THEY BE ABLE TO GET WEEKEND THERAPY PT HADN'T GOTTEN ANY LAST TIME HE WAS THERE. [facility] INDICATED THAT THEY ARE ABLE TO ACCEPT PT ONCE MEDICALLY STABLE. CM NOTIFIED PT AND SPOUSE. THEY ARE AWARE AND AGREEABLE. CM TO FOLLOW INDICATED WITH DC PLANNING.
[2020-01-28 15:40] VITALS: BP 134/93
--- NOTE | 2020-01-28 17:43 | NUR ---
CONSULTED TO PLACE A PICC FOR A PATIENT DISCHARGING TO HOME WITH IV ANTIBIOTICS. ORDER AND CONSENT NOTED. THE PROCEDURE WELL BENIFITS AND RISKS WERE DISCUSSED WITH THE PATIENT AND HE VERBALIZED UNDERSTANDING. THE LEFT BASILIC WAS WIDLEY PATENT. A #4F SINGLE LUMEN POWER PICC WAS PLACED PER HOSPITAL POLICY AFTER A BEDSIDE TIMEOUT WAS COMPLETED. LINE WAS 54CM AND [facility] WITHOUT DIFFICULTY.. AFTER THE 1ST XRAY THE LINE WAS WITHDRAWN 3CM PER RADIOLOGIST REQUEST, LINE IS RELEASED FOR USE
--- NOTE | 2020-01-28 19:39 | NUR ---
Assumed pt care this am, FC in place drainig light yellow urine. Wound vac placed this pm on the left foot. PICC line ordered and placed. Upper ext. were swollen, lung sound on all sal[place] are coarse, MD informed medication given. Blood sugar checks andmedications given as per emar. 3l O2 via NC maintained, educated pt on food preferences for diabetics. was at the bedside, POC followed with no signs or verbalizations of distress noted. Endorsed tothe night nurse.
[2020-01-28 19:42] VITALS: BP 135/62
--- NOTE | 2020-01-29 04:31 | NUR ---
Pt. rested quietly during the night when checked on during frequent rounds. He offers no c/o pain. No c/o of shortness of air. Continues on O2 at 3 liters per a nasal canula. Wound vac is intact to left foot. Bed alarm is on.
[2020-01-29 07:55] VITALS: BP 166/96
[2020-01-29 09:46] VITALS: BP 166/96
[2020-01-29 12:12] LABS: CALCIUM 8.4 mg/dL (8.5-10.1); CREATININE 1.6 mg/dL (0.7-1.3); POTASSIUM 3.8 mmol/L (3.5-5.1)
[2020-01-29] MEDS ORDERED: HUMALOG100 UNIT/1 SUBQ (13:24)
[2020-01-29] MEDS ORDERED: ELIQUIS2.5 MG PO (13:24)
[2020-01-29] MEDS ORDERED: ACETYLCYST200 MG/1 M INH (13:24)
[2020-01-29] MEDS ORDERED: GABAPENTIN 100100 MG PO (13:24)
[2020-01-29] MEDS ORDERED: LASIX 40 MG TAB40 MG PO (13:24)
[2020-01-29] MEDS ORDERED: LANTUS SUBQ (13:24)
[2020-01-29] MEDS ORDERED: PANTOPRAZOLE SO40 M1 PO (13:24)
[2020-01-29] MEDS ORDERED: SODIUM BICARBO650 M3 PO (13:24)
[2020-01-29] MEDS ORDERED: IPRAT-ALBUT 0.5-3 ML INH (13:24)
--- NOTE | 2020-01-29 14:26 | NUR ---
CARE TEAM INDICATED THAT PT IS MEDICALLY STABLE TO DC TO [facility] THIS DAY. CHART COPY MADE. ORDERS FAXED. [facility] TRANSPORT ARRAGNED FOR [id number]. REPORT TO BE CALLED TO . PT AND SPOUSE AWARE AND AGREEABLE. NO OTHER CM INTERVENTION INDICATED. CASE CLOSED.
--- NOTE | 2020-01-29 14:45 | NUR ---
FAXED DC ORDERS/SUMMARY TO [facility] SPOKE WITH BENITA IN ADM SHE RECEIVED ORDERS AND ARRANGED TRANSPORT.
--- NOTE | 2020-01-29 20:48 | NUR ---
Assumed pt care this am, VS stable. Blood sugar is not well maanaged since pt is non compliant with the diet, would bring food from outside that is not carb controlled. DC orders given, wound vac removed by wound care team, FC removed and peripheral IV removed. Right upper arm picc patent flushing and draining blood. CAlled facility for report, admitting nurse not available, left a voicemail to call back to get report. of this writing no call back was received. POC followed with no signs or vebalizations of distress noted. PT was picked up by transport around 5pm. P_t is now dc.
== END 2020-01-29 17:10 | DRG 853 ==
LOC: ER 16:28 → 4W 19:11 → EROBS 19:11 → 4W 22:46
PROVIDERS: Hospitalist; Internal Medicine; Nurse Practitioner Family; Physician Assistant; ADMIT Internal Medicine; ATTEND Internal Medicine
PROC: 0LBW0ZZ Excision of Left Foot Tendon, Open Approach (ICD-10-PCS; principal; 2020-01-24)
PROC: 0JBR0ZZ Excision of Left Foot Subcutaneous Tissue and Fascia, Open Approach (ICD-10-PCS; principal; 2020-01-24)
PROC: 0LBW0ZZ Excision of Left Foot Tendon, Open Approach (ICD-10-PCS; 2020-01-27)
PROC: 0JBR0ZZ Excision of Left Foot Subcutaneous Tissue and Fascia, Open Approach (ICD-10-PCS; 2020-01-27)
PROC: 02HV33Z Insertion of Infusion Device into Superior Vena Cava, Percutaneous Approach (ICD-10-PCS; 2020-01-28)
DX: A41.9 Sepsis, unspecified organism (principal); I50.33 Acute on chronic diastolic (congestive) heart failure; E43 Unspecified severe protein-calorie malnutrition; J96.11 Chronic respiratory failure with hypoxia; J84.9 Interstitial pulmonary disease, unspecified; I48.20 Chronic atrial fibrillation, unspecified; I13.0 Hypertensive heart and chronic kidney disease with heart failure and stage 1 through stage 4 chronic kidney disease, or unspecified chronic kidney disease; N17.9 Acute kidney failure, unspecified; E78.5 Hyperlipidemia, unspecified; Z79.01 Long term (current) use of anticoagulants; E11.621 Type 2 diabetes mellitus with foot ulcer; G47.33 Obstructive sleep apnea (adult) (pediatric); I89.0 Lymphedema, not elsewhere classified; Z96.653 Presence of artificial knee joint, bilateral; G89.29 Other chronic pain; M54.5 Low back pain; M19.90 Unspecified osteoarthritis, unspecified site; R65.20 Severe sepsis without septic shock; G47.00 Insomnia, unspecified; E11.22 Type 2 diabetes mellitus with diabetic chronic kidney disease; E11.51 Type 2 diabetes mellitus with diabetic peripheral angiopathy without gangrene; I87.8 Other specified disorders of veins; E11.42 Type 2 diabetes mellitus with diabetic polyneuropathy; I25.10 Atherosclerotic heart disease of native coronary artery without angina pectoris; L89.896 Pressure-induced deep tissue damage of other site; E53.8 Deficiency of other specified B group vitamins; E66.01 Morbid (severe) obesity due to excess calories; N18.3 Chronic kidney disease, stage 3 (moderate); B95.2 Enterococcus as the cause of diseases classified elsewhere; B96.89 Other specified bacterial agents as the cause of diseases classified elsewhere; Z20.828 Contact with and (suspected) exposure to other viral communicable diseases; L08.9 Local infection of the skin and subcutaneous tissue, unspecified; S01.00XA Unspecified open wound of scalp, initial encounter; X58.XXXA Exposure to other specified factors, initial encounter; Z79.899 Other long term (current) drug therapy; Z79.82 Long term (current) use of aspirin; Z88.0 Allergy status to penicillin; Z98.42 Cataract extraction status, left eye; Z98.41 Cataract extraction status, right eye; Z86.73 Personal history of transient ischemic attack (TIA), and cerebral infarction without residual deficits; Z68.30 Body mass index [BMI] 30.0-30.9, adult; Z83.3 Family history of diabetes mellitus; Z82.49 Family history of ischemic heart disease and other diseases of the circulatory system; Z80.3 Family history of malignant neoplasm of breast; Z87.891 Personal history of nicotine dependence; Y93.89 Activity, other specified; Z79.4 Long term (current) use of insulin; Y92.89 Other specified places as the place of occurrence of the external cause; Y99.8 Other external cause status; L89.620 Pressure ulcer of left heel, unstageable
CPT/HCPCS: 10040; 10045; 27000; 50010; 50101; 50386; 51412; 56525; 57091; 57141; 62110; 62850; 70005

== ENCOUNTER → 2020-01-22 | Outpatient (CLI) | payer OTHER, BC ==
[~2020-01-22] MED LIST changes: +ACETYLCYST200 MG/1 M INH; +CARDIZEM SR 60M60 MG PO; +ELIQUIS2.5 MG PO; +GABAPENTIN 100100 MG PO; +GLYBURIDE 5 MG T5 M1 PO; +HUMALOG100 UNIT/1 SUBQ; +IPRAT-ALBUT 0.5-3 ML INH; +LANTUS SUBQ; +LASIX 40 MG TAB40 MG PO; +METAMUCIL PLUS1 EACH PO; +NEURONTIN100 MG PO; +NF; +ONGLYZA5 MG PO; +PANTOPRAZOLE SO40 M1 PO; +PREDNISONE 5 MG5 M1 PO; +SODIUM BICARBO650 M3 PO; +SPIRONOLACTONE25 MG PO
== END ==
LOC: HYPER 08:01
PROVIDERS: ATTEND Emergency Medicine
DX: E11.621 Type 2 diabetes mellitus with foot ulcer (principal); L97.522 Non-pressure chronic ulcer of other part of left foot with fat layer exposed; L97.512 Non-pressure chronic ulcer of other part of right foot with fat layer exposed; L89.623 Pressure ulcer of left heel, stage 3; L97.421 Non-pressure chronic ulcer of left heel and midfoot limited to breakdown of skin; E11.622 Type 2 diabetes mellitus with other skin ulcer; L97.822 Non-pressure chronic ulcer of other part of left lower leg with fat layer exposed; L97.811 Non-pressure chronic ulcer of other part of right lower leg limited to breakdown of skin; E11.628 Type 2 diabetes mellitus with other skin complications; L03.116 Cellulitis of left lower limb; L03.115 Cellulitis of right lower limb; S01.90XA Unspecified open wound of unspecified part of head, initial encounter; R60.0 Localized edema; I27.20 Pulmonary hypertension, unspecified; G47.30 Sleep apnea, unspecified; Z79.82 Long term (current) use of aspirin; Z79.84 Long term (current) use of oral hypoglycemic drugs; Z79.01 Long term (current) use of anticoagulants; Z87.891 Personal history of nicotine dependence; X58.XXXA Exposure to other specified factors, initial encounter; Y93.89 Activity, other specified; Y92.89 Other specified places as the place of occurrence of the external cause; Y99.8 Other external cause status

== ENCOUNTER 2020-02-24 16:30 | Inpatient (IN) | payer OTHER, BC ==
[~2020-02-24] VITALS: Ht 180.3 cm; Wt 112.7 kg
--- NOTE | ~2020-02-24 | HC ---
[facility] [place] [address] CONSULTATION Name: CANDICEKOURTNEY B Room #: 363-P [facility] IN M.R.#: [id number] Admission: 02/24/20 Attend Phys: Anaya Elliott MD Discharge: Date of : 42 Report #: [id number] THIS REPORT FOR: cc: Eugene Farrar MD, Bernard O. MD Al-Absi, Ahmed I. MD ~ CC: Eugene Elliott DATE OF SERVICE: 02/25/2020 REASON FOR CONSULTATION: Elevated creatinine. HISTORY OF PRESENT ILLNESS: A 79-year-old with past medical history of chronic kidney disease. He used to see Dr. Alcala in our practice. His baseline creatinine usually runs anywhere from 1.7-2.0. His chronic kidney disease was attributed to hypertension and diabetes mellitus. He also has a history of renal atrophy. The patient has history of noncompliance. He was supposed to see Dr. Allison in our clinic. He last saw him back in 06/2019. The patient is known to have chronic bilateral lower extremity wounds. He was in the wound clinic yesterday and was found to be hypoxemic and was sent to the Emergency Room for further evaluation and management. He has a history of COPD and is maintained on 2 liters oxygen at home. On arrival to the Emergency Room, the patient's creatinine was 2.7. I was consulted to manage his chronic kidney disease. He tells me that he is supposed to take diuretics, but he is not really sure about which kind of diuretics he is taking. He denies any obstructive symptoms. He did report to increasing bilateral lower extremity edema and water weight gain. PAST MEDICAL HISTORY: 1. Diabetes mellitus. 2. Chronic kidney disease with a baseline creatinine of around 1.7-2.0. 3. Hypertension. 4. Renal atrophy. 5. Atrial fibrillation. 6. Chronic obstructive pulmonary disease, maintained on oxygen. 7. Obstructive sleep apnea. PAST SURGICAL HISTORY: 1. Laminectomy. 2. Bilateral knee replacement. 3. Cataract surgeries. FAMILY HISTORY: Significant for hypertension and coronary artery disease. ALLERGIES: PENICILLIN. [facility] [address] [place] [address] CONSULTATION Name: KOURTNEY HARVEY Room #: 363-P [facility] IN ..#: [id number] Admission: 02/24/20 Attend Phys: Anaya Elliott MD Discharge: Date of : 42 Report #: [id number] SOCIAL HISTORY: Denies drug or alcohol abuse. He is wheelchair-bound. He is a former smoker. MEDICATIONS: Listed. 1. Eliquis. 2. Atorvastatin. 3. Lasix. 4. Sodium bicarbonate. 5. Glargine insulin. 6. Vitamin D. 7. Multivitamin. REVIEW OF SYSTEMS: GENERAL: Significant for fatigue and weakness. CARDIOVASCULAR: Significant for shortness of breath. PULMONARY: No cough or hemoptysis, but significant for shortness of breath. GASTROINTESTINAL: No nausea or vomiting. GENITOURINARY: No frequency, no urgency. MUSCULOSKELETAL: As per the history of present illness. NEUROLOGICAL: He is wheelchair-bound. SKIN: Wounds on both lower extremities as described above. PHYSICAL EXAMINATION: VITAL SIGNS: Pulse rate is 92, temperature is 36.4, respiratory rate is 20, blood pressure is 138/72. HEAD AND NECK: No jugular venous distention. CHEST: Bilateral crackles. CARDIOVASCULAR: No rub. ABDOMEN: Soft and nontender. EXTREMITIES: Lower extremities: Extensive edema and wound dressing applied bilaterally. LABORATORY VALUES: White blood cell count 14.6, down from 18.9; platelet is 400,000. Chemistry from today revealed a sodium of 142, potassium of 4.5, BUN of 81, creatinine of 2.5, magnesium of 1.7. Microbiological and COVID-19 tests are pending. ASSESSMENT, IMPRESSION AND PLAN: 1. Acute kidney injury. 2. Chronic kidney disease. 3. Hypoxemia. 4. Bilateral lower extremity wounds. 5. Renal atrophy. 6. The patient is known to have chronic kidney disease with multiple comorbid conditions including diabetes mellitus, hypertension, atrial fibrillation, [place] [address] CONSULTATION Name: KOURTNEY HARVEY Room #: 363-P [facility] IN ..#: [id number] Admission: 02/24/20 Attend Phys: Anaya Elliott MD Discharge: Date of : 42 Report #: [id number] bilateral lower extremity wounds. He sees Dr. Allison in our clinic. He lost to follow up with our clinic. His creatinine is slightly above his baseline. This should improve with the control of his edema and the current active inflammatory status. 7. Continue with the Lasix once a day. 8. ID has been consulted to manage his leukocytosis and potential cellulitis of his lower extremities. 9. Wound care. 10. He is being ruled out for COVID-19 infection. 11. Cardiac consultations regarding his history of atrial fibrillation, anticoagulation. By: [id number] Shraddha Grimes MD /nt
--- NOTE | ~2020-02-24 | HC ---
[facility] [address] CONSULTATION Name: KOURTNEY HARVEY Tricia Room #: 461-P [facility] IN .R.#: [id number] Admission: 02/24/20 Attend Phys: Anaya Elliott MD Discharge: Date of : 42 Report #: [id number] THIS REPORT FOR: cc: Eugene Farrar MD, Bernard O. MD Stephens, Thad A. MD ~ CC: Eugene Elliott DATE OF SERVICE: 02/25/2020 WOUND CARE CONSULTATION PERSONAL PHYSICIAN: Eugene Farrar. CHIEF COMPLAINT: Left foot surgical wound and multiple venous leg ulcers. HISTORY OF PRESENT ILLNESS: This is a 79-year-old white male who was seen in the Wound Clinic yesterday afternoon for a surgical wound on the dorsal left foot, which has been status post PriMatrix skin substitute placement several weeks ago. The patient after that hospitalization had been sent to [facility] for rehabilitation and has been doing quite well and was discharged approximately a week ago. The patient while at home he and his had noticed increased amount of fluid retention and weight gain. The patient when he presented to my wound clinic yesterday was severely dyspneic and despite being on oxygen by 3 liters had an oxygen saturation of only 83%. The patient's foot wound at that time actually appeared very healthy and the patient was able to have a second skin substitute placed without difficulty. At that point in time, given the patient's significant hypoxia and respiratory distress, the patient initially refused to be admitted to the hospital, but then after speaking to him and his for a prolonged period of time he then agreed to be admitted. The patient at this point in time after aggressive diuresis, patient states he feels much better. The patient states that the IV Lasix has caused significant diuresis and feels mildly short of breath, but not anything like he was 24 hours ago. We have been asked to follow the patient for these chronic wounds. PAST MEDICAL HISTORY: Significant for history of chronic congestive heart failure, pulmonary fibrosis, pulmonary hypertension, chronic kidney disease, diabetes mellitus, obesity, venous insufficiency with recurrent venous leg ulcers, recent surgical debridement of the left dorsal foot wound. CURRENT MEDICATIONS: Multiple, I reviewed the patient's medication list. DRUG ALLERGIES: PENICILLIN. [address] [address] CONSULTATION Name: CANDICEKOURTNEY Tricia Room #: 461-P [facility] IN .R.#: [id number] Admission: 02/24/20 Attend Phys: Anaya Elliott MD Discharge: Date of : 42 Report #: [id number] SOCIAL HISTORY: The patient has a remote history of smoking, quitting approximately a year ago. Denies alcohol use. FAMILY HISTORY: Not pertinent to current medical condition. REVIEW OF SYSTEMS: CONSTITUTIONAL: The patient denies fever or chills. NEUROLOGIC: The patient complains of mild generalized weakness, but no isolated weakness in arms or legs. EYES: No complaints. ENT: No complaints. CARDIAC: The patient has chronic lower extremity edema, worse over the past week without chest pain or palpitation. RESPIRATORY: The patient denies wheezes, but has associated cough and shortness of breath; however, better in the past 24 hours. GASTROINTESTINAL: The patient denies nausea, vomiting or abdominal pain. GENITOURINARY: The patient denies urgency or frequency; however, currently has a Tubbs catheter in place for the IV diuresis. MUSCULOSKELETAL: No complaints. SKIN: The patient has multiple venous leg ulcers. PHYSICAL EXAMINATION: VITAL SIGNS: Stable. The patient is afebrile. GENERAL: Alert and oriented x 3 white male who is in mild distress secondary to his dyspnea. HEENT: Normocephalic, atraumatic. Mucous membranes are moist. Pupils are round. Sclerae white. NECK: Supple. There is a small amount of JVD noted. LUNGS: Diminished breath sounds heard throughout. HEART: Regular. ABDOMEN: Soft, nontender. EXTREMITIES: The patient has 2+ edema with weeping from multiple superficial venous leg ulcers. There are no signs of actual increased erythema, warmth or cellulitis. Evaluation of the dorsal left foot reveals a surgical wound with a PriMatrix skin substitute to be in place. Stage 3 decubitus ulcer, left heel. NEUROLOGIC: Cranial nerves 2-12 grossly intact. Motor and sensory grossly intact. LABORATORY DATA: White count 14.6, hemoglobin 10.8. COVID-19 was negative. BUN 93, creatinine 2.7. Albumin 2.3. IMPRESSION: 1. Surgical wound, left dorsal foot, status post PriMatrix placement, 02/24/2020. 2. Multiple venous leg ulcers, bilateral lower extremities. 3. Stage 3 decubitus ulcer, left heel. [address] [address] CONSULTATION Name: KOURTNEY HARVEY Room #: 461-P ADM IN M.R.#: [id number] Admission: 02/24/20 Attend Phys: Anaya Elliott MD Discharge: Date of : 42 Report #: [id number] 4. Hypertension. 5. Hyperlipidemia. 6. Chronic kidney disease. 7. Moderate protein-calorie malnutrition with albumin 2.8. 8. Generalized debility. 9. Acute on chronic congestive heart failure with respiratory distress - improved. PLAN: We will leave the PriMatrix on the left dorsal foot for the next 2 weeks. We will change the outer dressing, which is an ABD daily. Will keep his legs elevated as much as possible to decrease the swelling. Will use Xeroform to the bilateral lower extremities and secure this with Kerlix. Will use AmLactin lotion to bilateral lower extremities. IV antibiotics will be continued per Infectious Disease. We will make sure we maximize the patient's oral protein nutrition for maximizing wound healing. We will utilize physical and occupational if this patient is able for his generalized debility. We will continue all other current medications at this time. We will continue to follow the patient. By: [id number] Ray Caro MD /joshua
[~2020-02-24 16:30] MED LIST changes: -NEURONTIN300 MG PO
[2020-02-24 16:38] VITALS: BP 146/94
[2020-02-24 17:16] LABS: BE(vivo) -4.1 mmol/L (-2 to +3); HCO3 18.9 mmol/L (22.0-26.0); PCO2 28.8 mmHg (35.0-45.0); PO2 142.3 mmHg (80.0-100.0); pH 7.436 (7.360-7.450); sO2 98.9 % (92.0-98.0)
[2020-02-24 17:23] LABS: ABSOLUTE NEUTROPHILS 17.6 thou/uL (1.4-8.2); BASOPHILS 0.1 % (0.0-2.0); HEMATOCRIT 35.4 % (42.0-52.0); HEMOGLOBIN 11.8 gm/dL (14.0-18.0); LYMPHOCYTES 1.3 % (24.0-44.0); MCH 30.3 pg (26.0-34.0); MCHC 33.3 g/dL (28.0-37.0); MONOCYTES 5.7 % (1.0-8.0); PLATELET COUNT 437 thou/uL (150-400); POLYS 92.9 % (36.0-66.0); RBC 3.89 mil/uL (4.50-6.00); RDW 16.2 % (10.5-14.5); WBC 18.9 thou/uL (4.0-11.0)
[2020-02-24 17:28] LABS: ANION GAP 14 mmol/L (7-16); BUN 85 mg/dL (7-18); CALCIUM 8.8 mg/dL (8.5-10.1); CHLORIDE 104 mmol/L (98-107); CO2 23 mmol/L (21-32); CREATININE 2.7 mg/dL (0.7-1.3); GLUCOSE 218 mg/dL (74-106); SODIUM 141 mmol/L (136-145)
[2020-02-24 17:37] LABS: TROPONIN-I <0.06 ng/mL (<0.06)
[2020-02-24 21:22] VITALS: BP 128/95
[2020-02-24 22:23] VITALS: BP 136/88
[2020-02-25] VITALS (10 sets, daily range): BP systolic 120–178; BP diastolic 72–103
[2020-02-25 06:06] LABS: HEMATOCRIT 33.6 % (42.0-52.0); HEMOGLOBIN 10.8 gm/dL (14.0-18.0); MCH 29.2 pg (26.0-34.0); MCHC 32.2 g/dL (28.0-37.0); MCV 90.7 fL (80.0-100.0); RBC 3.7 mil/uL (4.50-6.00); RDW 15.6 % (10.5-14.5); WBC 14.6 thou/uL (4.0-11.0)
[2020-02-25 06:16] LABS: CALCIUM 8.3 mg/dL (8.5-10.1); CREATININE 2.5 mg/dL (0.7-1.3); MAGNESIUM 1.7 mg/dL (1.8-2.4); POTASSIUM 4.5 mmol/L (3.5-5.1)
--- NOTE | 2020-02-25 07:42 | EKG ---
[facility] [place] [address] ELECTROCARDIOGRAM REPORT Name: KOURTNEY HARVEY Room #: 363-P ADM IN M.R.#: [id number] Admission: 02/24/20 Attend Phys: Anaya Elliott MD Discharge: Date of : 42 Report #: [id number] THIS REPORT FOR: cc: Eugene Farrar MD, Bernard O. MD Lundgren, Craig H. MD [facility] THIS REPORT FOR: //name// [facility] ED Test Date: 2020-02-24 Test Time: 16:56:43 Pat Name: KOURTNEY HARVEY Department: Room: [facility] Gender: M [employer] Operator: SHANE : 1940 Requested By: Nelson Trevino Order Number: [id number] MD: Amaury Shelby Measurements Intervals [place] Rate: 100 P: MS: QRS: 33 QRSD: 72 T: 57 QT: 335 QTc: 432 Interpretive Statements Atrial fibrillation Low voltage Compared to ECG 01/22/2020 19:50:42 No significant changes Electronically Signed On 02-25-2020 7:42:15 CDT by Amaury Shelby [email or web address] <ELECTRONICALLY SIGNED> By: Amaury Shelby MD, [facility] 02/25/20 0742 1656 [id number] Amaury Shelby MD, [facility] /EPI
--- NOTE | 2020-02-25 09:12 | NUR ---
PT ADMITTED TO 363 FROM ER. HE WAS AT THE WOUND CARE CLINIC AND BECAME SOA. SAT IN 80S. PT SENT TO ER. ADMITTED FOE CHF EXAC, R/O COVID AND LEUKOCYTOSIS. HE IS IRRITABLE. REFUSED NS TO ASSESS BUTTOCKS FOR WOUNDS. REFUSED LE DRESSINGS TO BE REMOVED FOR PICTURES. PICTURES TAKEN OF DRESSINGS TO EMELY LES. ORIENTED PT TO RM , FALL PRECAUTIONS, BED ALARM ON , O2 SAT MONITOR IS ON. PT SATTING 94-95%.
--- NOTE | 2020-02-25 10:31 | NUR ---
Nutrition: Received consult for CHF. Pt admit: SOA, COVID r/o, wounds, CHF exacerbation. COVID test pending. Currently NPO. Will defer education at present, until COVID results known. Pt also recently seen 1 mo ago by MAIDA weeks during last admit. Seen 01/22 for wound/diet education. Protein needs were reviewed for wounds and pt voiced familiarity with Na and diabetic diet restrictions. A1c is elevated at 9.3% per 01/26 labs. On Lantus + SSI while here. Anticipate BGs will be exacerbated as pt on IV Solu Medrol. Do note vitamin D level was low last admit at 24 ng/ml, consider adding vitamin D supplement.
[2020-02-25 14:22] LABS: BE(vivo) -5.8 mmol/L (-2 to +3); HCO3 17.1 mmol/L (22.0-26.0); PCO2 26.4 mmHg (35.0-45.0); PO2 61.4 mmHg (80.0-100.0); pH 7.429 (7.360-7.450); sO2 92.6 % (92.0-98.0)
--- NOTE | 2020-02-25 15:00 | NUR ---
INITIAL ASSESSMENT: Received consult for discharge planning. SW reviewed chart and spoke with nursing. Pt was admitted from home due to CHF exacerbation. Pt was at the [facility] office and become short of air and sent to the ER. Pt placed in Enhanced Isolation to r/o COVID-19. Test results are pending. Pt is on IV abx and IV Lasix. SW notified by [facility] liaison, that pt is currently on service with their HH agency and they have started talking about transitioning pt to their hospice program. SW spoke with pt via phone. Introduced role of SW. Pt appears to be alert/orientated. Pt reports he lives at home with his . Pt has a walker and w/c. Stair glide in place in the home. Pt states he is not aware of plan for hospice. Pt's PCP is Dr. Eugene Farrar. Pt has been to [facility] in the past. SW discussed with [facility]. Pt's is interested in having hospice info visit with pt. Pt transferred to ICU earlier this afternoon due to needing bipap support. SW updated HH liaison. SW is following to assist as needed with discharge planning.
--- NOTE | 2020-02-25 15:02 | NUR ---
[facility] APPROX 0700. ASSESSMENTS CHARTED. PT'S HR SUSTAINED IN 120'S. DR. RED NOTIFIED. CARDIZEM GTT ORDERED AND STARTED. @10ML/HR. TITRATED TO 15ML/HR BEFORE TX TO ICU. ONLY 100CC URINE OUTPUT AFTER FIRST DOSE OF LASIX AND BLADDER PALPABLE. DR. RED NOTIFIED. MORAN ORDERED AND PLACED. PT ON 2LNC. BEGAN TO DESAT INTO 80'S AND TACHYPNEIC. INCREASED TO 4LNC. PT'S BLOOD SUGAR 497 @ LUNCHTIME, GIVEN 12U OF INSULIN LISPRO. BLOOD SUGAR RECHECK READ >[address] RED NOTIFIED AND INSULIN GTT ORDERED. PT HAS BEEN TRANSFERRED TO ICU PER DR. RED. PICC ORDERED AND OK'D BY DR. SENA.
--- NOTE | 2020-02-25 15:11 | NUR ---
Spoke with regarding patient meeting all the IC criteria for enhanced precautions to be discontinued before transferred to ICU. Dr. Elliott now in agreement to continue enhanced precautions and order second Covid test. If second covid test negative Dr. Elliott and Infection Control approve discontinuing enhanced precautions.
--- NOTE | 2020-02-25 16:49 | NUR ---
VASCULAR ACCESS CONSULTED FOR PICC LINE, OK WITH DR SENA. DISCUSSED BENEFITS AND RISK OF PICC WITH PT, HE STATES i'VE HAD 2 PICC'[address] BASILIC WAS WIDELY PATENT 3CM DEEP. TL 5FR PICC TRIMMED TO 50CM INSERTED TO 0CM. STAT CXR OBTAINED. PT TOLERATED WELL
--- NOTE | 2020-02-25 17:23 | NUR ---
PT TRANSFERED TO ICU AT 1444 TODAY. PT IS TACHYPNEIC, ANXIOUS, TACHYCARDIC, AND HYPERGLYCEMIC. DILTIAZAM GTT, AND INSULIN GTT. PICC LINE PLACED BY IV ACCESS TEAM. TIP PLACEMENT CONFIRMED BY CXR. PT PLAN TO TX BACK TO 3W. WILL DO SECOND COVID SWAB TODAY. PT PROGRESSING TOWARDS POC. WILL CONTINUE TO MONITOR.
[2020-02-26] VITALS: BP 122/76
[2020-02-26 01:00] VITALS: BP 121/82
--- NOTE | 2020-02-26 01:51 | NUR ---
PT REPORT CALLED TO EDY ON . PT TO BE TRANSPORTED BY MYSELF AND ENTRY LEVEL PROJECT COORDINATOR VIA BED TO ROOM 359.
[2020-02-26 02:35] VITALS: BP 139/91
--- NOTE | 2020-02-26 03:07 | NUR ---
RECEIVED PT FROM THE ICU, WAS TRANSFERRED WITH TWO RN, AND TWO COOK 3 PASTRY TRANSPORT VIA BED. PT WAS COOPERATIVE WITH CARE. WITH PRIMARY CONCERN REGARDING RECEIVING FOOD AND WATER. SITE SPECIALIST WAS CONSULTED AND [facility] TOLERATED DIET WAS PROVIDED. MORAN IS STILL IN PLACE NO ISSUES AT THIS TIME. INSULIN DRIP WAS PAUSED AT THE ED, THIS RN WILL RECHECK INSULIN LEVEL AT 0330 AND DETERMINE WHETHER TO DC OR CONTINUE. CARDIZEM DRIP IS CONTINUING AT 10ML/HR, PT'S CURRENT HR AT THIS TIME IS AT 84. PT IS ON SOFTWARE CONSULTANT AT THIS TIME. PT'S BACK SKIN WAS NOT ASSESSED DUE TO PT'S WORK OF BREATHING AND SOA, WHEN TRANSPORTING THE PATIENT, IT WAS VISIBLY NOTICEABLE THAT PT'S FACE WAS TURNING PURPLE FOR JUST LITTLE EXERTION. PT'S HOB IS ELEVATED TO 30' TO FACILIATE BREATHING. PT'S LEGS ARE STILL WRAPPED IN KERLIX AT THIS TIME. PT VERBALIZED A PAIN LEVEL OF 0 AND STATED THAT ANY PAIN LEVEL BELOW 3 IS OPTIMAL. NO OTHER CONCERNS FROM THE PT AT THIS TIME. WILL CONTINUE TO MONITOR AND UPDATE NECESSAR
[2020-02-26 06:45] LABS: ALBUMIN 2.3 g/dL (3.4-5.0); CALCIUM 8.4 mg/dL (8.5-10.1); CREATININE 2.7 mg/dL (0.7-1.3); PHOSPHORUS 5.6 mg/dL (2.5-4.9); POTASSIUM 4.4 mmol/L (3.5-5.1)
[2020-02-26 07:54] VITALS: BP 139/80
[2020-02-26] MEDS ORDERED: NEURONTIN300 MG PO (08:40)
[2020-02-26 12:20] VITALS: BP 159/106
--- NOTE | 2020-02-26 14:35 | NUR ---
DEMETRIO reviewed chart and spoke with nursing. Pt was transferred to 3 from ICU. Pt placed in Enhanced Isolation. Pt's first COVID test was negative. Repeat test is also negative. Pt will transfer off of 3W when a bed is available. Pt is on IV abx/IV lasix. DEMETRIO spoke with pt's via phone. Introduced role of SW. Pt's states pt is normally on 2L of continuous O2. Pt has been using [facility] and she would like to resume HH services upon discharge, and then request a hospice info visit, once pt returns home. Pt's does not want to visit pt while in the hospital due to COVID. DEMETRIO faxed clinical info to [facility] and notified liaison. DEMETRIO is following to assist as needed with discharge planning.
[2020-02-26 16:03] VITALS: BP 147/101
[2020-02-26 20:16] LABS: HEMOGLOBIN 11.2 gm/dL (14.0-18.0); MCH 28.9 pg (26.0-34.0); MCHC 32.1 g/dL (28.0-37.0); PLATELET COUNT 465 thou/uL (150-400); RBC 3.88 mil/uL (4.50-6.00); RDW 16.2 % (10.5-14.5); WBC 20.1 thou/uL (4.0-11.0)
[2020-02-26 20:51] LABS: ABSOLUTE NEUTROPHILS 19.1 thou/uL (1.4-8.2)
[2020-02-26 20:52] LABS: ANISOCYTOSIS 2+; POLYCHROMASIA OCCASIONAL
[2020-02-27 04:45] VITALS: BP 148/98
[2020-02-27 04:55] LABS: HEMOGLOBIN 11.1 gm/dL (14.0-18.0); MCH 28.7 pg (26.0-34.0); MCHC 31.8 g/dL (28.0-37.0); RBC 3.88 mil/uL (4.50-6.00); RDW 16.1 % (10.5-14.5); WBC 20.6 thou/uL (4.0-11.0)
[2020-02-27 05:10] LABS: CALCIUM 8.5 mg/dL (8.5-10.1); CREATININE 2.8 mg/dL (0.7-1.3); POTASSIUM 4.1 mmol/L (3.5-5.1)
[2020-02-27 07:58] VITALS: BP 150/103
--- NOTE | 2020-02-27 08:56 | NUR ---
ASSUMED CARE OF PT AT SHIFT CHANGE, PT IS A&0X4, PER REPORT INSULIN GTT STOPPED THIS A.M., BG WNL, ADITI PICC LINE HAS DRESSING ASKEW, WILL CALL IV TEAM FOR ASSISTANCE, ALSO HAS DRIED BLOOD AROUND BANDAGE, HAS TWO PIV AVAILABLE. T VERY SOA JUST SITTING IN BED EATING. STATES HE AMB AT HOME W/WALKER AND W/C. ENCOURAGED HIM TO USE CALL LIGHT FOR ALL NEEDS. IV ABX RUNNING. BG CHECKS. SEE SEPARATE INTEREVENTIONS FOR ASSESSMENTS
--- NOTE | 2020-02-27 11:20 | NUR ---
Nutrition: Follow up, as COVID test negative. Continues on heart healthy diet, with past education on low Na. Pt reports there is nothing wrong with his appetite, but states the "food is just lousy." Indicates at his past rehab facility, he loved the food. Pt noticeably short of breath just talking, on . He completed 50% of all meals yesterday, w/ last BM 02/25 too. 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 As pt not liking some of the food, worked on menu modifications for the next 2 meals. Allowed cottage cheese for high protein source (14 g per every 1/2 c) as pt disliked entree. Pt also wants milk on trays for added protein. Plan for tonight: executive sous chef salad w/ meat, cheese, eggs. Also w/ stage 3 pressure ulcer to L heel per EMR. Pt did not seem up to oral supplements. Likely remain low nutrition risk w/ ongoing menu changes for differing protein source. Do note EMR indicated requesting hospice info visit upon pt's return home.
[2020-02-27 12:06] VITALS: BP 163/107
--- NOTE | 2020-02-27 13:55 | NUR ---
SW reviewed chart and spoke with nursing. Pt has had two negative COVID tests and should transfer off of 3W when a bed becomes available. Pt is afebrile. On 6L of O2, IV lasix and IV steroids. Therapy recommended post-acute care for discharge. DEMETRIO spoke with pt's via phone. Discussed recommendation for post-acute care. Pt has been to [facility] twice this year. Pt's states that would be the preference if needed. Pt's states she will see how is doing tomorrow and decide if SNF would be a better option. Pt's agreeable with checking bed availability at [facility]. SW contacted [facility] liaison, who states they will have beds available. Referral will be sent tomorrow if needed. DEMETRIO is following to assist as needed with discharge planning.
[2020-02-27 16:01] VITALS: BP 155/109
[2020-02-27 19:50] VITALS: BP 145/42
--- NOTE | 2020-02-27 20:48 | NUR ---
PT ARRIVED TO UNIT FROM 3WEST AROUND 1700 IN STABLE CONDITION.PT WAS ON 6L O2 ON ARRIVAL.AROUND 1800,PT WAS VERY ANXIOUS AND C/O SOA AND HYPERVENTILATING. RT PAGED AND BREATHING TX GIVEN.PT WAS TRANSFERED TO ROOM CLOSER TO [facility] ST[facility] FOR CLOSER MONITOR.REPORT OFF TO ARDEN RN.
--- NOTE | 2020-02-28 03:24 | NUR ---
VSS-AFEBRILE. LUNGS TIGHT AND COURSE IN ALL HAJI BILATERALLY. BIPAP IN PLACE, SETTINGS PER PHYSICIAN. EXTREMELY SOA AT REST, MUCH MORE COMFORTABLE ON BIPAP. REFUSED DINNER. C/O BILATERAL LOWER EXTREMITIY PAIN, ELEVATED FOR COMFORT. SCROTUM SWOLLEN, ELEVATED AND APPLIED ICE PACK FOR COMFORT. CALL LIGHT NOT WORKING PROPERLY, GIVEN GARCIA TO CALL FOR ASSISTANCE. VERBALIZED UNDERSTANDING, AND IS ABLE TO CALL APPROPRIATELY WHEN NEEDING ASSISTANCE.
[2020-02-28 06:50] LABS: ALBUMIN 2.4 g/dL (3.4-5.0); CALCIUM 8.2 mg/dL (8.5-10.1); CREATININE 2.5 mg/dL (0.7-1.3); PHOSPHORUS 5.4 mg/dL (2.5-4.9); POTASSIUM 4.7 mmol/L (3.5-5.1)
[2020-02-28 07:40] VITALS: BP 154/94
[2020-02-28 15:32] VITALS: BP 146/90
--- NOTE | 2020-02-28 16:05 | NUR ---
CM FOLLOWED UP [facility] PT AND SPOUSE THIS AFTERNOON. THEY INDICATED THEY ARE INTERESTED IN SKILLED POST ACUTE CARE STAY AT [facility] ONCE MEDICALLY SABLE. PHYSICIAN INDICATED LIKELY NOT MEDICALLY STABLE TO DC UNTILL BEGINNING OF NEXT WEEK. REFERRAL SENT. SHOULD SOMETHING CHANGE AND PT BE MEDICALLY STABLE TO DC OVER WEEKEND CONTACT LIZ AT .
--- NOTE | 2020-02-28 17:00 | NUR ---
FAXED REFERRAL TO [facility] SPOKE WITH BENITA IN ADM SHE RECEIVED REFERRAL AND WILL REVIEW. DP TO FOLLOW.
--- NOTE | 2020-02-28 18:30 | NUR ---
PT ASSESSED AT START OF SHIFT. DR. RED IN EARLY AND STATED PT DOING MUCH BETTER. RT TRYING TO WEAN PT SOME FROM BIPAP BUT DOES HAVE SOA EASILY AFTER EATING. THERAPY WORKED W/ PT THIS AM. IN FOR VISIT.
[2020-02-28 21:37] VITALS: BP 154/99
--- NOTE | 2020-02-29 04:24 | NUR ---
PATIENT ALERT AND ORIENTED X4, HOWEVER, SOME CONFUSION WITH TIME LATER IN THE SHIFT. REMAINS ON TELE-AFIB. BS AT 2100 WAS 431 TO WHICH HE RECEIVED 23U LISPRO AND 30U OF LANTUS AND NOTIFIED RESTRICTIVE PREPARATION OPERATOR WHO GAVE ORDER TO RECHECK AT MN. BS AT HI WITH 338 RESULT AND TREATED PER SLIDING SCALE. RESTING QUIETLY. PATIENT C/O SWOLLEN SCROTUM AND ICE PACK WAS PLACED ALONG WITH PRN TYLENOL GIVEN. PATIENT SWITCHES FROM NASAL CANULA TO BIPAP DURING THE NIGHT WITH RT SUPERVISION. COOPERATIVE WITH CARE. WILL MONITOR.
[2020-02-29 06:51] LABS: ALBUMIN 2.5 g/dL (3.4-5.0); CALCIUM 8.4 mg/dL (8.5-10.1); CREATININE 2.2 mg/dL (0.7-1.3); PHOSPHORUS 4.5 mg/dL (2.5-4.9); POTASSIUM 4.3 mmol/L (3.5-5.1)
[2020-02-29 08:33] VITALS: BP 145/95
[2020-02-29 15:28] VITALS: BP 147/97
--- NOTE | 2020-02-29 17:04 | NUR ---
A/O, calm and cooperative; on BIPAP for most of the shift, on nasal cannual for meals, a doctor changed the nasal cannual oxygen flow to 5 L.
[2020-02-29 21:52] VITALS: BP 161/101
--- NOTE | 2020-03-01 03:39 | NUR ---
PATIENT ALERT AND ORIENTED X4 WITH SOME FORGETFULNESS. RT MONITORING CHANGES FROM BIPAP TO NC. BLOOD SUGAR MONITORED PER ORDER. MORAN TO D/D WITH CLEAR YELLOW URINE. REQUESTED AND GIVEN TYLENOL. SLEEPING BETTER TONIGHT. LARGE BM AT BEGINNING OF SHIFT. RESTING QUITLY. WILL MONITOR.
[2020-03-01 08:02] VITALS: BP 155/97
[2020-03-01 11:31] LABS: HEMATOCRIT 36.1 % (42.0-52.0); HEMOGLOBIN 11.5 gm/dL (14.0-18.0); MCH 28.5 pg (26.0-34.0); MCHC 31.8 g/dL (28.0-37.0); MCV 89.7 fL (80.0-100.0); PLATELET COUNT 409 thou/uL (150-400); RBC 4.03 mil/uL (4.50-6.00); RDW 16.2 % (10.5-14.5); WBC 19.8 thou/uL (4.0-11.0)
[2020-03-01 12:32] LABS: ABSOLUTE NEUTROPHILS 18.8 thou/uL (1.4-8.2); ANISOCYTOSIS 1+
[2020-03-01 12:34] LABS: POIKILOCYTOSIS 2+
[2020-03-01 14:12] LABS: ALBUMIN 2.4 g/dL (3.4-5.0); CALCIUM 8.6 mg/dL (8.5-10.1); CREATININE 1.9 mg/dL (0.7-1.3); POTASSIUM 4.6 mmol/L (3.5-5.1)
[2020-03-01 15:36] VITALS: BP 155/93
[2020-03-01 19:23] VITALS: BP 184/79
--- NOTE | 2020-03-01 19:39 | NUR ---
[facility] OT PT AT SHIFT CHANGE. ASSESSMENT CHARTED. MEDS GIVEN PER SEP. PT A&OX4. C/O PAIN TREATED WITH PO MEDS WITH PARTIAL RELIEF. PT ON BIPAP MOST OF DAY. PLAN TO DC TO [facility] TOMORROW. WILL CONTINUE TO MONITOR AND FOLLOW POC.
--- NOTE | 2020-03-02 02:29 | NUR ---
VSS-AFEBRILE. LUNGS CLEAR-7LNC IN PLACE. CPAP @ HS. OFFERED TURN EVERY TWO HOURS FOR COMFORT. SCROTAL REMAINS EDEMATOUS, SLING AND ICE PACK APPLIED. CALLS APPROPRIATELY FOR ANY NEEDED ASSISTANCE.
[2020-03-02 06:32] LABS: ALBUMIN 2.2 g/dL (3.4-5.0); CREATININE 1.8 mg/dL (0.7-1.3); PHOSPHORUS 3.6 mg/dL (2.5-4.9); POTASSIUM 4.6 mmol/L (3.5-5.1)
[2020-03-02 06:38] LABS: HEMATOCRIT 36.7 % (42.0-52.0); HEMOGLOBIN 11.8 gm/dL (14.0-18.0); MCH 28.5 pg (26.0-34.0); MCV 89.2 fL (80.0-100.0); PLATELET COUNT 371 thou/uL (150-400); RBC 4.12 mil/uL (4.50-6.00); RDW 16.2 % (10.5-14.5); WBC 25.6 thou/uL (4.0-11.0)
[2020-03-02 07:54] VITALS: BP 171/91
[2020-03-02] MEDS ORDERED: GABAPENTIN 100100 MG PO (10:54)
[2020-03-02] MEDS ORDERED: PULMICORT0.5 MG/22 INH (10:55)
[2020-03-02 11:41] LABS: ABSOLUTE NEUTROPHILS 24.8 thou/uL (1.4-8.2)
[2020-03-02 11:44] LABS: ANISOCYTOSIS 1+; BURR CELLS OCCASIONAL; OVALOCYTES FEW; POIKILOCYTOSIS SLIGHT
[2020-03-02] MEDS ORDERED: AZACTAM 1 GM VIA1 G1 IV (13:06)
--- NOTE | 2020-03-02 13:43 | NUR ---
CARE TEAM INDICATED THAT PT IS MEDICALLY STABLE TO DISCHARGE TO [facility] THIS DAY. REFERRAL HAD BEEN SENT TO FACILITY AND THEY CAN ACCEPT PT. CM CALLED AND NOTIFIED PT'S SPOUSE SHE IS AWARE AND AGREEABLE. SHE INDICATED THAT HE SON CAN BRING PT'S HOME BIPAP AND CPAP TO FACILITY AROUND 1300. CARE TEAM INDICATED THAT PT WOULD TRANSPORT SAFTELY VIA STRETCHER WITH 6L OT THIS WAS CONFIRMED WITH RT. CHART COPY MADE. ORDERS FAXED TO FACILITY. SECURE STRETCHER ELECTRIC MOTOR WINDERS ASSEMBLER WITH 6L O2 SET UP FOR 1400. NURSE GIVEN NUMBER FOR REPORT. PT'S SPOUSE AND SON TO WAIT TO GREET PT AT [facility] HE ARRIVES. NO OTHER CM INTERVENTION INDICATED. CASE CLOSED.
--- NOTE | 2020-03-02 14:12 | NUR ---
FAXED DC ORDERS/SUMMARY TO [facility] RECEIVED CONFIRMATION AND LEFT MSG WITH BENITA IN ADM SHE ALREADY SET UP TRANSPORTATION FOR 1400 TODAY.
[2020-03-02 15:45] VITALS: BP 160/101
[2020-03-02 20:13] VITALS: BP 157/100
--- NOTE | 2020-03-02 21:15 | NUR ---
Received awake on bed. Due medications given as prescribed, able to swallow meds w/o difficulty. Vital signs stable, with high HR. On telemetry- ST- stips attached to chart, no complaints of chest pain, crushing sensation and heaviness. On Bipap or O2 at 6lpm via nasal cannula. On heart heatly, carb controlled diet- pt refusing meals, encouraged and assisted in eating and drinking but with poor appetite. On blood sugar monitoring- taken and recorded; omitted insulin prescribed, pt with very poor appetite. Still a/w stool sample to be sent. With ayon in place- draining well; output measured and recorded accordingly. With triple lumen PICC line at right upper arm- intact and flushing well; on IV antibiotics. With scrotal edema- with sling in place. With bilateral leg dressing- changed today, photo taken. Assisted in ADLs. Falls bundle in place. Pt seen and examined by Dr Elliott, discharge orders made. Discharge orders made- forms to be signed. Cm set up transport at 1400. Pt discontinued from Bipap and switched to O2 at 6lpm via NC- as per Dr Elliott, pt's baselined. Pt desaturated to 80% upon switching, tried to increase O2 but remained desaturating- paged RT, pt hooked back to Bipap. Paged Dr Elliott 5x- no response- housekeeper child care informed- to cancel discharge, mancera asset protection manager aware that no response from physician. CM contacted facility and pt's as well- updated her upon arriving in the mancera. Kept pt comfortable. Mancera asset protection manager requested pt to be transferred to due to bipap and increasing O2 needs- shift boss charge nurse informed. To continue monitoring patient.
[2020-03-03] VITALS (32 sets, daily range): BP systolic 73–139; BP diastolic 49–88
[2020-03-03 05:28] LABS: BE(vivo) -3.8 mmol/L (-2 to +3); HCO3 19.6 mmol/L (22.0-26.0); PCO2 30.8 mmHg (35.0-45.0); PO2 69.4 mmHg (80.0-100.0); pH 7.422 (7.360-7.450); sO2 94.5 % (92.0-98.0)
[2020-03-03 06:48] LABS: HEMATOCRIT 38.5 % (42.0-52.0); HEMOGLOBIN 11.8 gm/dL (14.0-18.0); MCHC 30.7 g/dL (28.0-37.0); MCV 91.2 fL (80.0-100.0); PLATELET COUNT 350 thou/uL (150-400); RBC 4.23 mil/uL (4.50-6.00); RDW 16.3 % (10.5-14.5); WBC 30.4 thou/uL (4.0-11.0)
[2020-03-03 07:03] LABS: ALBUMIN 2.2 g/dL (3.4-5.0); CALCIUM 8.4 mg/dL (8.5-10.1); CREATININE 1.9 mg/dL (0.7-1.3); POTASSIUM 4.8 mmol/L (3.5-5.1); TOTAL PROTEIN 5.8 g/dL (6.4-8.2)
--- NOTE | 2020-03-03 07:44 | NUR ---
RESTLESS AND IRRITABLE THROUGH NIGHT, ATIVAN PRODUCED LITTLE RELIEF. ABG DONE, NO CRITICAL VALUES. ATTEMPTS TO PULL FACE MASK OFF, DIFFICULT TO REORIENT AND CONVINCE TO BE COMPLIANT. URINE SAMPLE SENT FOR ANALYSIS PER ORDERS.
--- NOTE | 2020-03-03 09:36 | NUR ---
THIS AM PT'S RESPIRATORY STATUS IS WORSENING A RAPID RESPONSE WAS CALLED. DR. PABON SPOKE WITH PT'S SPOUSE AND INDICATED THAT HE WOULD BE PLACED ON A VENT. CARE TEAM ARE DETERMINING WHERE HE WILL BE TRANSFERED TO AT THIS MOMENT. CM TO FOLLOW INDICATED WITH WITH DC PLANNING.
--- NOTE | 2020-03-03 11:48 | NUR ---
PT ADMITTED FROM ROOM 461 TO ROOM 251 AT ROUGHLY 1000. PT IS INTUBATED, ON PROPOFOL AND LEVOPHED. PT ROOM DOES NOT HAVE EKG WIRES SO PT IS ON THE ZOLL MONITOR. AFIB ON MONITOR. PT IN RESTRAINTS. DR GRIJALVA PAGED REGARDING PT AFIB AND HR. AMIODARONE GTT ORDERED. PT AT BEDSIDE, BHASKAR SEAY UPDATED HER. PT HAS 7.5 ETT 26 AT THE LIP. PT ON AC 16, 550 TV, PEEP 5, 100% FIO2. OG WAS PLACED BY BHASKAR SEAY AND KUB AND CXR ORDERED FOR TUBE PLACEMENT. PT ALREADY HAD A MORAN IN PLACE. BG WAS TAKEN, IT WAS 252.
[2020-03-03 12:19] LABS: BE(vivo) -9.6 mmol/L (-2 to +3); HCO3 16.8 mmol/L (22.0-26.0); PCO2 38.3 mmHg (35.0-45.0); PO2 140.7 mmHg (80.0-100.0); sO2 98.5 % (92.0-98.0)
[2020-03-03 12:20] LABS: pH 7.259 (7.360-7.450)
--- NOTE | 2020-03-03 13:08 | NUR ---
CONFERENCE SERVICE COORDINATOR CALLED ON Pt THIS MORNING. Pt TRANSFERRED TO ICU. D/T NEED FOR HIGHER LEVEL OF CARE WILL NEED NEW ORDERS TO RESUME PT INTERVENTIONS WHEN Pt IS MEDICALLY APPROPRIATE FOR PT.
--- NOTE | 2020-03-03 13:25 | NUR ---
Received patient on bed, confused and restless. On telemetry- - Dr Hernandez informed; no complaints of chest pain, crushing sensation and heaviness. On Bipap at 15lpm- pt constantly trying to remove Bipap and desaturating; checked freqently; and placed bipap back. On Carb controlled, heart healthy diet- with very poor appetite, refusing meals at times. on blood sugar monitoring- taken and recorded accordingly; with sliding scale insulin prescribed. With triple lumen PICC line in place- on IV antibiotics. Still a/w stool and sputum sample. With ayon in place- draining well; output measured and recorded accordingly. With bilateral leg dressing in place. Assisted in ADLs. Turned side to side. To continue monitoring patient. Pt with constant tachycardia, increasing confusion and restlessness- Dr Hernandez informed at 0824- will see and assess patient. Rapid response called at 0900, Dr Cho, Dr Hernandez present in patient's room; Pt intubated by Dr Cho. Dr Hernandez updated pt's re: plan of care. Blood sugar taken and recorded. Levophed and propofol drip started by house sup as ordered by physician. Vital signs taken and constantly monitored. Report given to GEENA Mcgraw. Pt transferred to 251 via bed with his personal belongings.
--- NOTE | 2020-03-03 14:22 | 2DMMODE ---
[facility] [email or web address] [address] 2 D/M-MODE ECHOCARDIOGRAM Name: KOURTNEY HARVEY Room #: 251-P ADM IN M.R.#: [id number] Admission: 02/24/20 Attend Phys: Anaya Elliott MD Discharge: Date of : 44 Report #: [id number] THIS REPORT FOR: cc: Eugene Farrar MD, Bernard O. MD Park, Jin S. MD ~ APPROVED REPORT Study performed: 03/03/2020 13:25:25 EXAM: Limited 2D, Doppler, and color-flow Echocardiogram Patient Location: ICU Room #: [facility] Status: routine BSA: 2.32 HR: 120 bpm BP: 122/83 mmHg Rhythm: Atrial Fibrillation Other Information Study Quality: Adequate Technically limited study due to obesity, patient on vent. Indications Limited echo for Afib. (Complete done 12/2019) 2D Dimensions RVDd: 50.18 mm Aortic Valve AoV Peak Johnny.: 1.68 m/s AO Peak Gr.: 11.32 mmHg Tricuspid Valve TR Peak Johnny.: 4.29 m/s RAP Estimate: 15.00 mmHg TR Peak Gr.: 74.11 mmHg PA Pressure: 89.00 mmHg Left Ventricle The left ventricle is normal size. Left ventricular systolic function is normal. LVEF is 60-65%. Right Ventricle Right ventricle is dilated. Right ventricle is mildly [facility] [address] [place] [address] 2 D/M-MODE ECHOCARDIOGRAM Name: CANDICEKOURTNEY B Room #: 251-P ADM IN M.R.#: [id number] Admission: 02/24/20 Attend Phys: Anaya Elliott, Discharge: Date of : 44 Report #: [id number] hypokinetic. Atria Left atrium is mildly dilated. Right atrium is severely dilated. Aortic Valve The Aortic valve is moderately sclerotic. Trace aortic regurgitation. There is no aortic valvular stenosis. Mitral Valve The mitral valve is normal in structure. Mild mitral regurgitation. Tricuspid Valve The tricuspid valve is normal in structure. Severe tricuspid regurgitation. Estimated PAP is 85-90mmHg. Pulmonic Valve Moderate pulmonic regurgitation. Great Vessels IVC is dilated and collapses <50% with inspiration. Pericardium There is no pericardial effusion. <Conclusion> The left ventricle is normal size. Left ventricular systolic function is normal. Right ventricle is dilated. Right atrium is severely dilated. The Aortic valve is moderately sclerotic. Mild mitral regurgitation. Severe tricuspid regurgitation. Estimated PAP is 85-90mmHg. <ELECTRONICALLY SIGNED> By: Chandra Soto MD 03/03/20 1422 21 21 Chandra Soto MD /INF
[2020-03-03 14:42] LABS: ABSOLUTE NEUTROPHILS 28.9 thou/uL (1.4-8.2)
[2020-03-03 14:43] LABS: ANISOCYTOSIS 1+; POLYCHROMASIA OCCASIONAL; SCHISTOCYTES OCCASIONAL
[2020-03-03 14:44] LABS: BURR CELLS FEW
[2020-03-03 15:16] LABS: URINE BLOOD 3+ (Negative); URINE CLARITY SL CLOUDY; URINE COLOR YELLOW; URINE GLUCOSE-RANDOM* NEGATIVE (Negative); URINE KETONES NEGATIVE (Negative); URINE LEUKOCYTES-REFLEX TRACE (Negative); URINE NITRITE-REFLEX NEGATIVE (Negative); URINE PROTEIN (DIPSTICK) 2+ (Negative); URINE SPECIFIC GRAVITY >= 1.030 (1.005-1.035)
--- NOTE | 2020-03-03 15:30 | NUR ---
PT WAS OVERBREATHING THE VENT AND LOOKED TO BE AGITATED, PROPOFOL WAS INCREASED. PT THEN BECAME HYPOTENSIVE, LEVOPHED WAS INCREASED. DR ERVIN AT BEDSIDE. ORDER FOR 500 ML FLUID BOLUS RECEIVED. PT BLOOD PRESSURE IMPROVING
[2020-03-03 15:36] LABS: ICTOTEST (BILI CONFIRMATORY) Negative (Negative); URINE BILIRUBIN NEGATIVE (Negative)
--- NOTE | 2020-03-03 15:55 | EKG ---
[facility] [place] [address] ELECTROCARDIOGRAM REPORT Name: KOURTNEY HARVEY Tricia Room #: 251- ADM IN M.R.#: [id number] Admission: 02/24/20 Attend Phys: Anaya Elliott MD Discharge: Date of : 44 Report #: [id number] THIS REPORT FOR: cc: Eugene Farrar MD, Bernard O. MD Couchonnal, Luis F. MD ~ THIS REPORT FOR: //name// [facility] Test Date: 2020-03-03 Test Time: 09:30:05 Pat Name: KOURTNEY HARVEY Department: Room: [facility] Gender: M Wildlife Control Operator: MANJIT : 1940 Requested By: Anaya Elliott Order Number: [id number] MD: Kade Sales Measurements Intervals [place] Rate: 135 P: VA: QRS: 32 QRSD: 84 T: 64 QT: 290 QTc: 435 Interpretive Statements Atrial fibrillation Low voltage, extremity leads Abnormal R-wave progression, late transition Compared to ECG 02/24/2020 16:56:43 No significant changes Electronically Signed On 03-03-2020 15:55:36 CDT by Kade Sales [email or web address] <ELECTRONICALLY SIGNED> By: Kade Sales MD 03/03/20 1555 9 Kade Sales MD /EPI
--- NOTE | 2020-03-03 15:57 | EKG ---
[facility] [place] [address] ELECTROCARDIOGRAM REPORT Name: ONEIDA HARVEYREHANA Clarke Room #: 251- ADM IN M.R.#: [id number] Admission: 02/24/20 Attend Phys: Anaya Elliott MD Discharge: Date of : 44 Report #: [id number] THIS REPORT FOR: cc: Eugene Farrar MD, Bernard O. MD Couchonnal, Luis F. MD ~ THIS REPORT FOR: //name// [facility] Test Date: 2020-03-03 Test Time: 13:20:56 Pat Name: KOURTNEY HARVEY Department: Room: [facility] Gender: M Bag Liner: Jerry CUELLAR : 1940 Requested By: Lindsay Roberts Order Number: [id number] MD: Kade Sales Measurements Intervals Bryan Rate: 127 P: IA: QRS: 55 QRSD: 77 T: 54 QT: 299 QTc: 435 Interpretive Statements Atrial fibrillation Paired ventricular premature complexes Low voltage, extremity and precordial leads Compared to ECG 03/03/2020 09:30:05 Ventricular premature complex(es) now present Electronically Signed On 03-03-2020 15:57:40 CDT by Kade Sales [email or web address] <ELECTRONICALLY SIGNED> By: Kade Sales MD 03/03/20 1557 1320 1320 Kade Sales MD /EPI
[2020-03-03 16:13] LABS: CASTS None Seen /LPF (None Seen); SQUAMOUS 0-3 Few /LPF (0-3)
[2020-03-03 16:14] LABS: CRYSTALS None Seen /LPF (None Seen); URINE RBC >20 Many /HPF (0-2); URINE WBC-REFLEX 6-15 Few /HPF (0-5); YEAST-REFLEX Present (None Seen)
--- NOTE | 2020-03-03 19:42 | NUR ---
PT WOUNDS TAKEN DOWN BY WOUNDCARE. WILL DRESS THEM WHEN [facility] ARRIVES.
[2020-03-04] VITALS (12 sets, daily range): BP systolic 70–107; BP diastolic 30–65
[2020-03-04 01:54] LABS: HEMATOCRIT 40.4 % (42.0-52.0); HEMOGLOBIN 12.3 gm/dL (14.0-18.0); MCH 28.3 pg (26.0-34.0); MCHC 30.5 g/dL (28.0-37.0); MCV 92.8 fL (80.0-100.0); RBC 4.36 mil/uL (4.50-6.00); RDW 17.3 % (10.5-14.5); WBC 28.2 thou/uL (4.0-11.0)
[2020-03-04 02:02] LABS: PLATELET COUNT 254 thou/uL (150-400)
[2020-03-04 02:15] LABS: CREATININE 2.9 mg/dL (0.7-1.3); TOTAL PROTEIN 4.9 g/dL (6.4-8.2)
[2020-03-04 02:17] LABS: POTASSIUM 6.5 mmol/L (3.5-5.1)
[2020-03-04 02:37] LABS: ABSOLUTE NEUTROPHILS 25.9 thou/uL (1.4-8.2); PLATELET ESTIMATE NORMAL
[2020-03-04 02:38] LABS: ANISOCYTOSIS 1+; BURR CELLS 1+; LARGE PLATELETS FEW; POIKILOCYTOSIS 1+; SCHISTOCYTES 1+
--- NOTE | 2020-03-04 04:36 | NUR ---
Patient noted to have a a poor waveform for oxygen saturation. Multiple probes were placed but patient's fingers were cold. When a good waveform was found by placing a probe on patient's ear, the readings were in the 50's and 60's. RT came to bedside and patient noted to have a declining heartrate. This RN and RT at bedside checked patient for a pulse and patient was pulseless. Code was called. Patient coded for 45 minutes, ASSISTANT WOMEN'S SOCCER COACH called patient's and she agreed to end all efforts and to let patient naturally. This RN had notified patient's spouse during the code and requested she come to the hospital. Patient at 0305.
--- NOTE | 2020-03-04 13:36 | EKG ---
[facility] [place] [address] ELECTROCARDIOGRAM REPORT Name: ONEIDA HARVEYREHANA Clarke Room #: 251-[facility] IN M.R.#: [id number] Admission: 02/24/20 Attend Phys: Anaya Elliott MD Discharge: 03/04/20 Date of : 44 Report #: [id number] THIS REPORT FOR: cc: Eugene Farrar MD, Bernard O. MD Couchonnal, Luis F. MD ~ THIS REPORT FOR: //name// [facility] Test Date: 2020-03-04 Test Time: 02:26:18 Pat Name: KOURTNEY HARVEY Department: Room: [facility] Gender: M Summer Nanny: Mick Merrill : 1940 Requested By: Anaya Elliott Order Number: [id number] MD: Kade Sales Measurements Intervals [place] Rate: 64 P: ND: QRS: 84 QRSD: 130 T: -67 QT: 559 QTc: 577 Interpretive Statements Idioventricular escape rhythm Electronically Signed On 03-04-2020 13:36:34 CDT by Kade Sales [email or web address] <ELECTRONICALLY SIGNED> By: Kade Sales MD 03/04/20 1336 5 5 Kade Sales MD /EPI
--- NOTE | 2020-03-04 13:37 | EKG ---
[facility] [place] [address] ELECTROCARDIOGRAM REPORT Name: ONEIDA HARVEYREHANA Clarke Room #: 251-[facility] IN M.R.#: [id number] Admission: 02/24/20 Attend Phys: Anaya Elliott MD Discharge: 03/04/20 Date of : 44 Report #: [id number] THIS REPORT FOR: cc: Eugene Farrar MD, Bernard O. MD Couchonnal, Luis F. MD ~ THIS REPORT FOR: //name// [facility] Test Date: 2020-03-04 Test Time: 02:47:08 Pat Name: KOURTNEY HARVEY Department: Room: [facility] Gender: M Machine Biller: Mick Merrill : 1940 Requested By: Anaya Elliott Order Number: [id number] MD: Kade Sales Measurements Intervals [place] Rate: 85 P: MD: QRS: -78 QRSD: 127 T: 107 QT: 339 QTc: 403 Interpretive Statements Atrial fibrillation Nonspecific IVCD with LAD Electronically Signed On 03-04-2020 13:37:45 CDT by Kade Sales [email or web address] <ELECTRONICALLY SIGNED> By: Kade Sales MD 03/04/20 [id number] Kade Sales MD /EPI
--- NOTE | 2020-03-04 13:37 | EKG ---
[facility] [place] [address] ELECTROCARDIOGRAM REPORT Name: ONEIDA HARVEYREHANA Clarke Room #: 251-[facility] IN M.R.#: [id number] Admission: 02/24/20 Attend Phys: Anaya Elliott MD Discharge: 03/04/20 Date of : 44 Report #: [id number] THIS REPORT FOR: cc: Eugene Farrar MD, Bernard O. MD Couchonnal, Luis F. 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
--- NOTE | 2020-03-04 13:37 | EKG ---
[facility] [place] [address] ELECTROCARDIOGRAM REPORT Name: CANDICEKOURTNEY B Room #: [facility] IN M.R.#: [id number] Admission: 02/24/20 Attend Phys: Anaya Elliott MD Discharge: 03/04/20 Date of : 44 Report #: [id number] THIS REPORT FOR: cc: Eugene Farrar MD, Bernard O. MD Couchonnal, Luis F. 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
== END 2020-03-04 03:05 | DRG 853 ==
LOC: ER 16:30 → EROBS 18:31 → 3W 18:31 → ICU 02-25 14:47 → 3W 02-26 02:39 → 4W 02-27 17:06 → ICU 03-03 10:40
PROVIDERS: Emergency Medicine; Hospitalist; Internal Medicine; Nurse Practitioner Family; Pediatrics; Specialist; ADMIT Internal Medicine; ATTEND Internal Medicine
PROC: 0HRNXK3 Replacement of Left Foot Skin with Nonautologous Tissue Substitute, Full Thickness, External Approach (ICD-10-PCS; 2020-02-24)
PROC: 02HV33Z Insertion of Infusion Device into Superior Vena Cava, Percutaneous Approach (ICD-10-PCS; principal; 2020-02-25)
PROC: 5A09357 Assistance with Respiratory Ventilation, Less than 24 Consecutive Hours, Continuous Positive Airway Pressure (ICD-10-PCS; 2020-02-27)
PROC: 5A09357 Assistance with Respiratory Ventilation, Less than 24 Consecutive Hours, Continuous Positive Airway Pressure (ICD-10-PCS; 2020-02-28)
PROC: 5A09357 Assistance with Respiratory Ventilation, Less than 24 Consecutive Hours, Continuous Positive Airway Pressure (ICD-10-PCS; 2020-02-29)
PROC: 5A09357 Assistance with Respiratory Ventilation, Less than 24 Consecutive Hours, Continuous Positive Airway Pressure (ICD-10-PCS; 2020-03-01)
PROC: 5A09357 Assistance with Respiratory Ventilation, Less than 24 Consecutive Hours, Continuous Positive Airway Pressure (ICD-10-PCS; 2020-03-02)
PROC: 0BH17EZ Insertion of Endotracheal Airway into Trachea, Via Natural or Artificial Opening (ICD-10-PCS; 2020-03-03)
PROC: 5A1935Z Respiratory Ventilation, Less than 24 Consecutive Hours (ICD-10-PCS; 2020-03-03)
PROC: 5A09357 Assistance with Respiratory Ventilation, Less than 24 Consecutive Hours, Continuous Positive Airway Pressure (ICD-10-PCS; 2020-03-03)
DX: A41.9 Sepsis, unspecified organism (principal); L89.623 Pressure ulcer of left heel, stage 3; J18.9 Pneumonia, unspecified organism; J96.21 Acute and chronic respiratory failure with hypoxia; J96.22 Acute and chronic respiratory failure with hypercapnia; I50.33 Acute on chronic diastolic (congestive) heart failure; N17.9 Acute kidney failure, unspecified; L97.829 Non-pressure chronic ulcer of other part of left lower leg with unspecified severity; L97.819 Non-pressure chronic ulcer of other part of right lower leg with unspecified severity; E44.0 Moderate protein-calorie malnutrition; L03.115 Cellulitis of right lower limb; I48.20 Chronic atrial fibrillation, unspecified; N18.4 Chronic kidney disease, stage 4 (severe); I48.21 Permanent atrial fibrillation; I13.0 Hypertensive heart and chronic kidney disease with heart failure and stage 1 through stage 4 chronic kidney disease, or unspecified chronic kidney disease; J44.0 Chronic obstructive pulmonary disease with (acute) lower respiratory infection; G93.40 Encephalopathy, unspecified; S91.302A Unspecified open wound, left foot, initial encounter; S91.301A Unspecified open wound, right foot, initial encounter; Z20.828 Contact with and (suspected) exposure to other viral communicable diseases; G47.33 Obstructive sleep apnea (adult) (pediatric); Z96.653 Presence of artificial knee joint, bilateral; N26.1 Atrophy of kidney (terminal); I27.20 Pulmonary hypertension, unspecified; E11.22 Type 2 diabetes mellitus with diabetic chronic kidney disease; R65.20 Severe sepsis without septic shock; E11.65 Type 2 diabetes mellitus with hyperglycemia; E53.8 Deficiency of other specified B group vitamins; J84.10 Pulmonary fibrosis, unspecified; D64.9 Anemia, unspecified; I87.8 Other specified disorders of veins; E11.51 Type 2 diabetes mellitus with diabetic peripheral angiopathy without gangrene; I46.9 Cardiac arrest, cause unspecified; G89.29 Other chronic pain; M54.9 Dorsalgia, unspecified; E66.01 Morbid (severe) obesity due to excess calories; I08.2 Rheumatic disorders of both aortic and tricuspid valves; I95.9 Hypotension, unspecified; Z79.52 Long term (current) use of systemic steroids; Z88.0 Allergy status to penicillin; Z82.49 Family history of ischemic heart disease and other diseases of the circulatory system; Z68.34 Body mass index [BMI] 34.0-34.9, adult; Z86.73 Personal history of transient ischemic attack (TIA), and cerebral infarction without residual deficits; Z98.42 Cataract extraction status, left eye; Z98.41 Cataract extraction status, right eye; Z82.3 Family history of stroke; Z83.3 Family history of diabetes mellitus; Z80.3 Family history of malignant neoplasm of breast; Z87.891 Personal history of nicotine dependence; Z79.01 Long term (current) use of anticoagulants; X58.XXXA Exposure to other specified factors, initial encounter; Y93.89 Activity, other specified; Y92.89 Other specified places as the place of occurrence of the external cause; Y99.8 Other external cause status
CPT/HCPCS: 10045; 10078; 10203; 10879; 27000

== ENCOUNTER → 2020-02-24 | Outpatient (CLI) | payer OTHER, BC ==
[~2020-02-24] MED LIST changes: +ACETYLCYST200 MG/1 M INH; +CARDIZEM SR 60M60 MG PO; +ELIQUIS2.5 MG PO; +GABAPENTIN 100100 MG PO; +GLYBURIDE 5 MG T5 M1 PO; +HUMALOG100 UNIT/1 SUBQ; +IPRAT-ALBUT 0.5-3 ML INH; +LANTUS SUBQ; +LASIX 40 MG TAB40 MG PO; +METAMUCIL PLUS1 EACH PO; +NEURONTIN100 MG PO; +NEURONTIN300 MG PO; +NF; +ONGLYZA5 MG PO; +PANTOPRAZOLE SO40 M1 PO; +PREDNISONE 5 MG5 M1 PO; +SODIUM BICARBO650 M3 PO; +SPIRONOLACTONE25 MG PO
== END ==
LOC: HYPER 14:36
PROVIDERS: ATTEND Emergency Medicine
DX: E11.621 Type 2 diabetes mellitus with foot ulcer (principal); L97.522 Non-pressure chronic ulcer of other part of left foot with fat layer exposed; L97.512 Non-pressure chronic ulcer of other part of right foot with fat layer exposed; L89.623 Pressure ulcer of left heel, stage 3; L97.411 Non-pressure chronic ulcer of right heel and midfoot limited to breakdown of skin; E11.622 Type 2 diabetes mellitus with other skin ulcer; L97.822 Non-pressure chronic ulcer of other part of left lower leg with fat layer exposed; L97.812 Non-pressure chronic ulcer of other part of right lower leg with fat layer exposed; S01.90XD Unspecified open wound of unspecified part of head, subsequent encounter; L03.115 Cellulitis of right lower limb; I87.2 Venous insufficiency (chronic) (peripheral); R60.0 Localized edema; I27.20 Pulmonary hypertension, unspecified; G47.30 Sleep apnea, unspecified; Z87.891 Personal history of nicotine dependence; Z79.82 Long term (current) use of aspirin; Z79.84 Long term (current) use of oral hypoglycemic drugs; Z79.01 Long term (current) use of anticoagulants; X58.XXXD Exposure to other specified factors, subsequent encounter